=== PATIENT | male | born 1960 | race Caucasian/White ===

== ENCOUNTER 2023-06-08 13:10 | Day surgery (SDC) | payer BC, MEDICARE ==
[2023-06-08] VITALS (8 sets, daily range): BP systolic 96–120; BP diastolic 57–69; PULSE 60–82; RESP 10–18; TEMP 98.4; O2SAT 98–100
[~2023-06-08] VITALS: Ht 185.4 cm; Wt 77.9 kg
[~2023-06-08 13:10] MED LIST: AMI200T PO; APIX5TAB3 PO; DOCUMENT DATE & TIME OF BETA-BLOCKER PO ONE; GLIM4TAB7 PO; HYDR-3972 PO; LISI10TA27 PO; METO50TA17 PO; [UNRECOGNIZED DRUG - REMARK]; albuterol 2.5 MG/3 ML nebule NEB ONE; famotidine 20mg tablet PO ONE
[2023-06-08] MEDS ORDERED: BUPIVAcaine/PF 2.5mg/ml (0.25%) 10ml vial ONE (13:19)
[2023-06-08] MEDS: ringers solution, lacted 1,000 ML IV SCH ×2 (13:46→14:18)
[2023-06-08] MEDS ORDERED: cefazolin 2gm/D5W 100mL 100 ML IV ONE (13:55)
--- NOTE | 2023-06-08 14:00 | NUR ---
PT BLOOD SUGAR NOTED TO BE 300 WITH ACCU CHECK-DR RIVERA AWARE, NO NEW ORDERS GIVEN
[2023-06-08] MEDS ORDERED: sevoflurane 250ml liquid IH ONE (15:12)
[2023-06-08] MEDS ORDERED: meperidine/PF 25mg/ml syringe IV PRN ×3 (15:15)
[2023-06-08] MEDS ORDERED: morphine 2 MG/ML inj. syringe IV PRN (15:15)
[2023-06-08] MEDS ORDERED: proCHLORperazine 10 MG/2 ml inj IV PRN (15:15)
[2023-06-08] MEDS ORDERED: morphine 4 MG/ML inj SYRINge IV PRN (15:15)
[2023-06-08] MEDS ORDERED: ringers solution, lacted 1,000 ML IV SCH (15:15)
[2023-06-08] MEDS ORDERED: ondansetron/PF 4mg/2ml inj IV PRN (15:15)
[2023-06-08] MEDS ORDERED: fentaNYL/PF 50MCG/1 ML 2ML syringe ONE (15:18)
[2023-06-08] MEDS ORDERED: midazolam 1 mg/ML 2ml injection ONE (15:18)
[2023-06-08] MEDS ORDERED: propofol inj 20 ML IV ONE (15:49)
--- NOTE | 2023-06-08 15:56 | NUR ---
Received from OR via MARY, accompanied by Anesthesiologist and report given by MIGUEL Anesthesiologist. PATIENT UNCONSCIOUS WITH LMA, NO S/S OF PAIN, V/S WNL, ERICA PICC LINE, RIGHT FOOT FRANSISCO WRAP DRESSING W/ 4X4 C/D/I. ELEVATE AND ICE RIGHT LOWER EXTREMITY. Addendum: 06/08/23 at 1611 by Vaibhav Morales RN Amended: Links added.
[2023-06-08] MEDS ORDERED: BUPIVAcaine/PF 2.5 mg/ml (0.25%) 30ml vial IJ ONE (16:05)
--- NOTE | 2023-06-08 16:56 | NUR ---
ALL DISCHARGE CRITERIA HAS BEEN MET. VSS, PAIN AT A TOLERABLE LEVEL, ABLE TO SAFELY AMBULATE AND TRANSFER SELF. IV TAKEN OUT WITHOUT ANY COMPLICATIONS. ALL DISCHARGE INSTRUCTIONS COVERED WITH PATIENT AND ALL QUESTIONS ANSWERED. PATIENT TAKEN OUT VIA WHEELCHAIR WITH ALL BELONGINGS TO PERSONAL VEHICLE WHERE FAMILY DROVE PATIENT HOME. Addendum: 06/08/23 at 1711 by Vaibhav Morales RN Amended: Links added.
== END 2023-06-08 16:56 | disposition home or self-care (01) ==
LOC: PAS 13:10
PROVIDERS: ATTEND Orthopaedic Surgery Orthopaedic Trauma
DX: M86.171 Other acute osteomyelitis, right ankle and foot (principal); M87.874 Other osteonecrosis, right foot; E11.22 Type 2 diabetes mellitus with diabetic chronic kidney disease; I13.0 Hypertensive heart and chronic kidney disease with heart failure and stage 1 through stage 4 chronic kidney disease, or unspecified chronic kidney disease; I50.9 Heart failure, unspecified; N18.9 Chronic kidney disease, unspecified; I48.91 Unspecified atrial fibrillation; F40.240 Claustrophobia; M19.90 Unspecified osteoarthritis, unspecified site; I25.10 Atherosclerotic heart disease of native coronary artery without angina pectoris; D64.9 Anemia, unspecified; I25.2 Old myocardial infarction; Z88.0 Allergy status to penicillin; Z72.89 Other problems related to lifestyle; F17.210 Nicotine dependence, cigarettes, uncomplicated; Z98.890 Other specified postprocedural states; Z98.1 Arthrodesis status; Z95.810 Presence of automatic (implantable) cardiac defibrillator
CPT/HCPCS: 28122; 82948; 87070; 87075; 87077; A6222; J0690; J2250; J2704; J3010; J3490; J7030; J7120; Z7506; Z7512; A4618; A6446; A6449; A7000

== ENCOUNTER 2024-12-19 16:05 | Inpatient (IN) | payer MEDICARE, OTHER ==
[~2024-12-19] VITALS: Ht 188 cm; Wt 60.2 kg
[~2024-12-19 16:05] MED LIST changes: +CYAN-104 PO; -DOCUMENT DATE & TIME OF BETA-BLOCKER PO ONE; -HYDR-3972 PO; +MELO-102 PO; +MULT-1085 PO; +UBID100C16 PO; -[UNRECOGNIZED DRUG - REMARK]; -albuterol 2.5 MG/3 ML nebule NEB ONE; -famotidine 20mg tablet PO ONE; +krill oil
[2024-12-19] MEDS ORDERED: DICL-182 PO (16:44)
[2024-12-19] MEDS ORDERED: MIDO10TA3 PO (16:44)
[2024-12-19] MEDS ORDERED: GABA300T28 PO (16:44)
[2024-12-19] MEDS ORDERED: METR-159 PO (16:44)
[2024-12-19] MEDS ORDERED: LIPA1CAP36 (16:44)
[2024-12-19] MEDS ORDERED: INSU100I61 SQ (16:44)
[2024-12-19] MEDS ORDERED: HYDR-3972 PO (16:44)
[2024-12-19] MEDS ORDERED: INSU100I31 SQ (16:44)
[2024-12-19] MEDS ORDERED: EMPA10TA PO (16:44)
[2024-12-19 17:11] LABS: BASOPHILS % (AUTO) 0.5 % (0-1); EOSINOPHILS # (AUTO) 0.1 X10'3 (0-0.9); EOSINOPHILS % (AUTO) 1.7 % (0-6); HEMATOCRIT 27.8 % (42.0-52.0); HEMOGLOBIN 9.7 g/dl (14.0-17.9); LYMPHOCYTES # (AUTO) 1.2 X10'3 (1.1-4.8); LYMPHOCYTES % (AUTO) 21.4 % (21-51); MEAN CORPUSCULAR HGB CONC 34.9 g/dL (33.0-36.5); MEAN CORPUSCULAR VOLUME 88.7 FL (78-98); MONOCYTES # (AUTO) 0.5 X10'3 (0-0.9); MONOCYTES % (AUTO) 8.1 % (2-12); NEUTROPHILS # (AUTO) 3.9 X10'3 (1.8-7.7); NEUTROPHILS % (AUTO) 68.3 % (42-75); PLATELET COUNT 143 X10'3 (140-440); RED BLOOD COUNT 3.13 X10'6 (4.70-6.10); RED CELL DISTRIBUTION WIDTH 17.7 % (11.5-14.5); WHITE BLOOD COUNT 5.7 X10'3 (4.5-11.0)
[2024-12-19] MEDS: CefTRIAXone/D5W-Rocephin 1gm 50 ML IV ONE (17:11)
[2024-12-19 17:13] LABS: LACTIC SEPSIS 0.7 MMOL/L (0.4-2.0)
[2024-12-19 17:20] LABS: ALANINE AMINOTRANSFERASE 222 U/L (12-78); ALBUMIN 2.7 G/DL (3.4-5.0); ANION GAP 8 (8-16); ASPARTATE AMINO TRANSFERASE 416 U/L (10-37); BILIRUBIN,TOTAL 8.2 MG/DL (0.1-1.0); BLOOD UREA NITROGEN 18 MG/DL (7-18); BUN/CREATININE RATIO 22.2 (10.0-20.0); CALCIUM 8.7 MG/DL (8.5-10.1); CHLORIDE 96 MMOL/L (99-107); CREATININE 0.81 MG/DL (0.60-1.10); GLUCOSE 168 MG/DL (70-104); POTASSIUM 3.9 MMOL/L (3.5-5.1); SODIUM 132 MMOL/L (135-145); eCRCL 106 ML/MIN; eGFR > 90 ML/MIN
[2024-12-19] MEDS ORDERED: iohexol 300mg/ml 100ml inj. ONE (17:23)
--- NOTE | 2024-12-19 17:50 | Physician Documentation ---
History of Present Illness ~ General Chief Complaint: Abnormal Lab(s) Stated Complaint: ABNORMAL LABS Time Seen by MD: 16:13 Primary Medical Doctor: Chu Bojorquez MD History of Present Illness Initial Comments 64 year old male sent from Patient's hospital for jaundice, elevated bilirubin and liver enzymes that were noted during that stay. Patient denies abdominal pain, reportedly has a history of alcohol abuse. Has a recent partial amputation of R foot and underwent a debridement. Medication Reconciliation Allergies: Coded Allergies: No Known Drug Allergies (Verified Allergy, Unknown, 10/13/23) Penicillins (Verified Adverse Reaction, Unknown, NAUSEA AND VOMITING, 10/06/23) Scheduled Amiodarone Hcl (Cordarone), 1 TAB PO DAILY, (Reported) Apixaban (Eliquis), 1 TAB PO BID, (Reported) Cyanocobalamin (Vitamin B-12), 1 TAB PO DAILY, (Reported) Empagliflozin (Jardiance), 1 TAB PO DAILY, (Reported) Ferrous Sulfate* (Ferrous Sulfate*), 1 TAB PO DAILY, (Reported) Gabapentin (Gabapentin ER), 300 MG PO BID, (Reported) Glimepiride* (Amaryl*), 1 TAB PO BID, (Reported) Krill/Om-3/Dha/Epa/Phospho/Ast (Krill Oil 1,000 mg Softgel), 2 MG PO DAILY, (Reported) Lisinopril (Lisinopril), 1 TAB PO DAILY, (Reported) Meloxicam (Meloxicam), 1 TAB PO DAILY, (Reported) Metoprolol Tartrate* (Metoprolol Tartrate*), 1 TAB PO Q12H, (Reported) Metronidazole* (Flagyl*), 1 TAB PO Q8H, (Reported) Midodrine Hcl (Midodrine Hcl), 1 TAB PO TID, (Reported) Multivitamin (Multi Vitamin Daily), 1 TAB PO DAILY, (Reported) Multivitamin (Multi Vitamin Daily), 1 TAB PO DAILY, (Reported) Tamsulosin Hcl* (Flomax*), 1 TAB PO Q48H, (Reported) Ubidecarenone (Coq-10), 100 MG PO DAILY, (Reported) Ubidecarenone (Coq-10), 200 MG PO DAILY, (Reported) Scheduled PRN Diclofenac Sodium (Diclofenac Sodium), 1 TAB PO BID PRN for pain, (Reported) Hydrocodone Bit/Acetaminophen (Hydrocodon-Acetaminophn 10-325 tablet), 1 TAB PO Q8H PRN for pain, (Reported) Miscellaneous Medications Insulin Glargine,Hum.rec.anlog (Basaglar Kwikpen U-100), SQ, (Reported) Insulin Lispro (Insulin Lispro Kwikpen U-100), SQ, (Reported) Lipase/Protease/Amylase (Zenpep Dr 25,000 Unit Capsule), (Reported) [krill oil], Unknown Dose, (Reported) Past Medical History Past Medical History: *CARDIOVASCULAR*, Congestive Heart Failure Patient History: FH: myocardial infarction FATHER brother FH: renal cell carcinoma MOTHER sister Alcohol Use: Alcoholic Review of Systems All Other Systems at this time: Reviewed and Negative Physical Exam Physical Exam Vital Signs: RN Vital Signs have been reviewed: Yes, Temperature: 98.8, Source: Oral, Heart Rate: 74, Respiratory Rate: 14, BP: 124/69, Pulse Oximetry: 98, Weight: 150.000 Oxygen Flow Rate: 0 Physical Exam HEENT: PERRL, moist oral mucosa, EOMI +icteric Pulmonary: No respiratory distress Cardiac: RRR, no murmur, rub or gallop GI: nondistended, soft, nontender, no guarding, no rebound MSK: no deformity; R foot in hard boot Skin: w/d/i, +jaundice Neuro: alert, nonfocal Psych: normal affect Progress Results/Orders Results/Orders Orders - AYAZ JOHNSTON MD Ultrasound Of Abdomen (12/19/24 21:24) Page Hospitalist (12/20/24 01:36) Fill Out Med Reconciliation (12/20/24 01:36) Completed Orders - AYAZ JOHNSTON MD Ultrasound Of Abdomen (12/19/24 21:24) Metronidazole-Flagyl 500mg/Ns (Flagyl 50 (12/19/24 22:28) Vancomycin Inj (Vancomycin Inj) (12/19/24 22:35) Vancomycin/Ns 1 Gm Add-[place] (Vancomyc (12/20/24 00:20) Lipase (12/20/24 02:17) CMP (12/20/24 02:26) Hgb A1c (12/20/24 02:26) MG (12/20/24 02:26) PHOS (12/20/24 02:26) Vital Signs 12/19/24 12/19/24 12/19/24 12/19/24 16:22 16:30 16:36 18:30 Temp 98.8 98.8 Pulse 75 74 Resp 12 12 14 B/P (MAP) 124/69 124/69 (87) Pulse Ox 97 98 O2 Flow Rate 0 0 12/19/24 12/19/24 12/19/24 12/20/24 20:16 21:30 22:30 01:30 Temp 98.8 98.8 Pulse 71 71 75 75 Resp 14 16 12 17 B/P (MAP) 136/72 (93) 145/77 (99) 134/75 (94) 119/51 (73) Pulse Ox 99 99 O2 Flow Rate 0 0 0 Laboratory Tests Test 12/19/24 16:25 12/19/24 17:06 12/19/24 18:40 12/19/24 19:39 White Blood Count 5.7 Red Blood Count 3.13 L Hemoglobin 9.7 L Hematocrit 27.8 L Mean Corpuscular Volume 88.7 Mean Corpuscular Hemoglobin 31.0 Mean Corpuscular Hemoglobin Concent 34.9 Red Cell Distribution Width 17.7 H Platelet Count 143 Mean Platelet Volume 8.0 Neutrophils (%) (Auto) 68.3 Lymphocytes (%) (Auto) 21.4 Monocytes (%) (Auto) 8.1 Eosinophils (%) (Auto) 1.7 Basophils (%) (Auto) 0.5 Neutrophils # (Auto) 3.9 Lymphocytes # (Auto) 1.2 Monocytes # (Auto) 0.5 Eosinophils # (Auto) 0.1 Basophils # (Auto) 0.0 CBC Comment Sodium Level 132 L Potassium Level 3.9 Chloride Level 96 L Carbon Dioxide Level 28.0 Anion Gap 8 Blood Urea Nitrogen 18 Creatinine 0.81 Estimated GFR/1.73 m2 > 90 BUN/Creatinine Ratio 22.2 H Glucose Level 168 H Lactic Acid Level 0.7 1.5 Calcium Level 8.7 Total Bilirubin 8.2 H Aspartate Amino Transf (AST/SGOT) 416 H Alanine Aminotransferase (ALT/SGPT) 222 H Alkaline Phosphatase 2640 H Ammonia 75 H Total Protein 6.2 L Albumin 2.7 L Globulin 3.5 Albumin/Globulin Ratio 0.8 L Chemistry Comments Glucometer 181 H Blood Gas Specimen Type Arterial Blood Gas Puncture Site Lb O2 Saturation 94.4 Arterial Blood pH (Temp corrected) 7.447 Arterial Blood pCO2 (Temp correct) 34.6 L Arterial Blood pO2 (Temp corrected) 74.0 L Arterial Blood PO2/FiO2 Ratio 3.50 Arterial Blood HCO3 23.3 Arterial Blood Base Excess -0.3 Arterial Blood Oxyhemoglobin 92.7 L Arterial Blood Carboxyhemoglobin 1.5 Arterial Blood Methemoglobin 0.3 Arterial Blood Deoxyhemoglobin 5.5 H Edwin Test Na Blood Gas Hemoglobin 10.2 L Blood Gas Temperature 37.1 Blood Gas Modality Room air FiO2 21.0 Blood Gas Critical Value Called To Dr roach Test 12/19/24 21:55 12/20/24 02:26 Urine Specimen Description Urinal Urine Color Dark yellow Urine Clarity Clear Urine pH 6.5 Urine Specific [place] 1.015 Urine Protein Negative Urine Glucose (UA) Negative Urine Ketones Negative Urine Occult Blood Negative Urine Nitrite Negative Urine Bilirubin Moderate Urine Urobilinogen 0.2 Urine Leukocyte Esterase Negative Urine Culture Indicated Not ind Volume Urine Centrifuged 10 ml Urine Comment White Blood Count 7.4 Red Blood Count 2.89 L Hemoglobin 9.1 L Hematocrit 26.0 L Mean Corpuscular Volume 89.7 Mean Corpuscular Hemoglobin 31.5 H Mean Corpuscular Hemoglobin Concent 35.1 Red Cell Distribution Width 17.8 H Platelet Count 146 Mean Platelet Volume 8.0 Neutrophils (%) (Auto) 83.8 H Lymphocytes (%) (Auto) 7.4 L Monocytes (%) (Auto) 6.8 Eosinophils (%) (Auto) 1.4 Basophils (%) (Auto) 0.6 Neutrophils # (Auto) 6.2 Lymphocytes # (Auto) 0.5 L Monocytes # (Auto) 0.5 Eosinophils # (Auto) 0.1 Basophils # (Auto) 0.0 CBC Comment Sodium Level 130 L Potassium Level 3.9 Chloride Level 94 L Carbon Dioxide Level 25.1 Anion Gap 11 Blood Urea Nitrogen 18 Creatinine 0.79 Estimated GFR/1.73 m2 > 90 BUN/Creatinine Ratio 22.8 H Glucose Level 178 H Hemoglobin A1c 6.6 H Calcium Level 8.5 Phosphorus Level 3.0 Magnesium Level 1.4 L Total Bilirubin 10.8 H Aspartate Amino Transf (AST/SGOT) 363 H Alanine Aminotransferase (ALT/SGPT) 207 H Alkaline Phosphatase 2635 H Total Protein 5.9 L Albumin 2.6 L Globulin 3.3 Albumin/Globulin Ratio 0.8 L Lipase 6 L Chemistry Comments Microbiology Date/Time Source Procedure Growth Status 12/19/24 18:46 Blood Hand Left Blood Culture - Preliminary NO GROWTH AFTER 1 DAY Resulted Medical Decision Making Findings 64 year old male with recent development of signs of liver or biliary disease, arriving jaundiced. Workup confirmed outside hospital's laboratory studies inc luding markedly elevated bilirubin, elevated tranaminases and other sequalae of liver disease. I elected to start with a CT of the abdomen with plan for likely admission to our facility for further workup. The CT is pending and I will sign out to Dr. Johnston for disposition. Differential Diagnosis Ddx = liver failure, acute biliary obstruction, liver cirrhosis, acute hepatitis, liver tumor, sepsis, hepatic encephalopathy, UTI, pneumonia, wound infection. Departure Admitted to Inpatient Unit: yes, to hospitalist Impression: Primary Impression: Hyperbilirubinemia Additional Impressions: Transaminitis Choledocholithiasis with acute cholecystitis with obstruction Condition: Guarded Referrals: NO PRIMARY CARE PROVIDER (PCP) Education Educated: Patient Educated regarding: diagnosis Signature Scribe Signature: . Attestation: The note accurately reflects work and decisions made by me.Ayaz Johnston MD 12/19/24 23:14 . MERLE PADILLA MD December 19, 2024 17:50 AYAZ JOHNSTON MD December 19, 2024 23:14
[2024-12-19 18:03] LABS: ALBUMIN/GLOBULIN RATIO 0.8 (1.1-1.5); ALKALINE PHOSPHATASE 2640 IU/L (46-116); TOTAL PROTEIN 6.2 G/DL (6.4-8.2)
--- NOTE | 2024-12-19 18:24 | RADIOLOGY REPORT ---
CHEST RADIOGRAPH Indication: hypotensive Technique: Single frontal view of the chest was obtained COMPARISON: DI CHEST,SINGLE VIEW on DOS: 10/13/23, DI CHEST,SINGLE VIEW on DOS: 10/10/23, DI CHEST,SINGLE VIEW on DOS: 10/06/23, DI CHEST,SINGLE VIEW on DOS: 10/06/23, DI CHEST,SINGLE VIEW on DOS: 05/31/23 FINDINGS: Lines and Tubes: Left chest AICD Lungs: Clear Pleura: No effusion. No pneumothorax. Cardiomediastinal contours: Unremarkable Bones: Unremarkable IMPRESSION: No acute disease.
[2024-12-19] MEDS: normal saline 1000ml 1,000 ML IV ONE (18:52)
[2024-12-19] MEDS: normal saline 1000ml 1,000 ML IV STA (18:52)
[2024-12-19 19:46] LABS: ABG BASE EXCESS -0.3 mmol/L (-2.0-3.0); ABG HCO3 23.3 mmol/L (21.0-28.0); ABG OXYGEN SATURATION 94.4 % (94.0-98.0); ABG PCO2 (T) 34.6 mmHg (35.0-48.0); ABG PH (T) 7.447 (7.350-7.450); FCOHb 1.5 % (0.5-1.5); FHHb 5.5 % (0.0-5.0); FMetHb 0.3 % (0.0-1.5); FO2Hb 92.7 % (94.0-98.0); MODE ROOM AIR; PATIENT TEMPERATURE 37.1; TOTAL HEMOGLOBIN 10.2 G/dl (13.5-17.5)
[2024-12-19 22:20] LABS: BILIRUBIN,URINE MODERATE (Neg); CLARITY,URINE CLEAR (Clear); GLUCOSE, URINE NEGATIVE (Neg); KETONES,URINE NEGATIVE (Neg); LEUKOCYTE ESTERASE ,URINE NEGATIVE (Neg); NITRITES, URINE NEGATIVE (Neg); OCCULT BLOOD,URINE NEGATIVE (Neg); PH,URINE 6.5 (4.8-8.0); PROTEIN,URINE NEGATIVE (Neg); UROBILINOGEN,URINE 0.2 E.U/dL (0.2-1.0)
[2024-12-19 22:22] LABS: COLOR,URINE DARK YELLOW (Yellow); UA COLLECTION TYPE URINAL
[2024-12-19] MEDS: vancomycin inj 1,000 MG in normal saline 250ml IV soln 250 ML IV ONE (22:35)
--- NOTE | 2024-12-19 23:02 | RADIOLOGY REPORT ---
Clinical History jaundice, biliary obstructive pattern Comparison ct abdomen pelvis on 10/12/2023, [address] chest on 10/06/2023, 449 images. Technique: Contiguous axial CT images of the chest, abdomen, and pelvis after intravenous contrast ad ministration. Coronal and sagittal reformation was performed. All CT scans at this medical facility are performed using dose modulation techniques as appropriate t o a performed exam including the following: Automated exposure control was utilized; adjustment of th e mA and/or kV according to patient size; and use of iterative reconstruction technique. All CT studies are reported to the Dose Index Registry of the [employer]. Contrast: omni 300 100ml Radiation Dose: CTDI (mGy): 15.05; DLP (mGy-cm): 1556.83 GILLIAN HERNANDEZ, [id number] Findings: Both lungs are clear. No pneumothorax or pleural effusion is present. The trachea and central bronc hi are patent. The heart is not enlarged. The coronary arteries show mild calcified atherosclerosis. No pericardi al effusion or lymphadenopathy is present. The thoracic aorta shows normal course and diameter. The pancreas shows moderate diffuse atrophy and contains numerous calcifications throughout the paren chyma. The pancreatic duct is dilated. An oval 43 x 22 mm loculated fluid collection has developed posterior to the pancreatic head through body. It severely narrows the splenic vein and likely sever genet compresses the common bile duct. The intrahepatic biliary ducts show mild diffuse dilation. The main portal vein is patent. The liver shows mild diffuse fatty infiltration. No suspicious enhancing mass is present. The gallbladder has been removed. The spleen is enlarged at 13.5 cm craniocaudally. Both adrenal glands and both kidneys are normal. No hydronephrosis or ureteral stone is present. The ascending through transverse colon show mild to moderate diffuse wall thickening. The stomach, s mall bowel, and colon show otherwise normal caliber and wall thickness. The appendix is normalis not well seen. Small amount of ascites is in the abdomen and pelvis. No free air, inflammatory changes, or lymphade nopathy is in the abdomen or pelvis. The abdominal aorta shows moderate diffuse atrophy but normal course and diameter. The urinary bladder is decompressed and shows mild diffuse wall thickening. The prostate is enlarged . No acute fracture or bony destructive lesion is in the imaged portion of the skeleton. Impression: 1. A loculated fluid collection posterior to the pancreas may represent a pseudocyst. It likely com presses the distal common bile duct. 2. Ascending through transverse colonic wall thickening concerning for colitis. No perforation or a bscess. 3. Urinary bladder wall thickening may be due to incomplete distention or cystitis. Please correlat e clinically. 4. Chronic pancreatitis. 5. Splenomegaly. 6. Postcholecystectomy. 7. Enlarged prostate. This report was electronically signed by Florentino Miller MD on 12/19/2024 10:58:23 PM.
[2024-12-19] MEDS: metroNIDAZOLE-Flagyl 500mg/NS 100 ML IV STA (23:43)
--- NOTE | 2024-12-20 01:22 | RADIOLOGY REPORT ---
Clinical History suspected biliary obstruction Comparison None Technique: Standard grayscale images were acquired in multiple planes with additional Doppler interro gation when appropriate. Without Contrast DAVIDGILLIAN BAPTISTE, [id number] Findings: Liver: No mass. Intrahepatic biliary ductal dilatation. heterogeneous echotexture of the liver. Gallbladder: No gallstones. Thickened gallbladder wall measuring up to 7 mm. Pericholecystic edema. Common bile duct: distended measuring 7 mm Right kidney: No kidney stone or hydronephrosis. Pancreas: Visualized portion is within normal limits. complex collection anterior to the pancreas 4. 5 x 2.2 cm. Aorta: No aneurysm. IVC: Unremarkable Ascites Impression: 1. Intrahepatic biliary ductal dilatation with a prominent common bile duct measuring 7 mm. No obst ructive stone recommend correlation with HIDA scan to evaluate for ductal obstruction. 2. Gallbladder wall and pericholecystic edema. No gallstones 3. Heterogeneous echotexture of the liver suggesting steatosis 4. Complex collection anterior to the pancreas 4.5 x 2.2 cm, question pseudocyst, bowel loop 5. Mild ascites This report was electronically signed by Manuel Herrera MD on 12/20/2024 1:19:21 AM.
[2024-12-20] MEDS: vancomycin/NS 1 GM ADD-VANTAGE 250 ML IV ONE (02:26)
[2024-12-20] MEDS ORDERED: potassium Cl 40MEQ/1/2NS 520ml 520 ML IV PRN (02:35)
[2024-12-20] MEDS ORDERED: mag hydrox/Alum hydrox/simeth 30ml oral suspension PO PRN (02:35)
[2024-12-20] MEDS ORDERED: morphine 2 MG/ML inj. syringe IV PRN (02:35)
[2024-12-20] MEDS ORDERED: magnesium Cl slow-release 64mg tablet PO PRN (02:35)
[2024-12-20] MEDS ORDERED: acetaminophen 325mg tablet PO PRN (02:35)
[2024-12-20] MEDS ORDERED: potassium Cl 20 mEq SR tablet PO PRN ×2 (02:35)
[2024-12-20 02:43] LABS: LIPASE 6 U/L (16-77)
--- NOTE | 2024-12-20 02:43 | HISTORY AND PHYSICAL-Residence ---
History & Physical Providers to CC Resident Creating Document: IVY RICE RES ~ History of Present Illness Primary Medical Doctor: Chu Bojorquez MD Reason for Admit\Complaint: Hyperbilirubinemia History of Present Illness This 64-year-old male was transferred from patient's hospital due to abnormal liver function tests. He is a poor historian. He has a history of alcohol use disorder, liver cirrhosis, CKD, diabetes mellitus type 2, history of AFib/alcoholic cardiomyopathy-s/p AICD placement, peptic ulcer disease, erosive esophagitis with significant GI bleed requiring pressors in the past. He recently had right 2nd and 3rd toe amputation done. He complains of abdominal pain mainly in the right lower quadrant for the last 2-3 days. Denies any nausea, vomiting, constipation or diarrhea. States that his noticed him turning completely yellow yesterday. Denies any fever or chills, chest pain, shortness of breath, dizziness or syncope or any other complaints. States that his last drink was about six months back. Allergies: Coded Allergies: No Known Drug Allergies (Verified Allergy, Unknown, 10/13/23) Penicillins (Verified Adverse Reaction, Unknown, NAUSEA AND VOMITING, 10/06/23) Home Medications Home Medications Active Reported Midodrine Hcl 10 Mg Tablet 1 Tab PO TID Diclofenac Sodium 75 Mg Tablet. 1 Tab PO BID PRN Flagyl* (Metronidazole) 500 Mg Tablet 1 Tab PO Q8H Zenpep 25,000 Unit Capsule (Lipase/Protease/Amylase) 25-79-105K Capsule.dr Chepe Bautista U-100 (Insulin Glargine,Hum.rec.anlog) 100 Unit/Ml (3 Ml) Insuln.pen SQ Insulin Lispro Lily U-100 (Insulin Lispro) 100 Unit/Ml Insuln.pen SQ Hydrocodon-Acetaminophn 10-325 tablet (Acetaminophen/Hydrocodone Bitart) 10mg- 325mg Tablet 1 Tab PO Q8H PRN Jardiance (Empagliflozin) 10 Mg Tablet 1 Tab PO DAILY Gabapentin ER (Gabapentin) 300 Mg Tab.er.24h [krill oil] Unknown Strength Unknown Dose Vitamin B-12 (Cyanocobalamin) 1,000 Mcg Tablet 1 Tab PO DAILY Coq-10 (Ubidecarenone) 100 Mg Capsule 100 Mg PO DAILY Multi Vitamin Daily (Multivitamin) 1 Each Tablet 1 Tab PO DAILY Meloxicam 15 Mg Tablet 1 Tab PO DAILY Metoprolol Tartrate* (Metoprolol Tartrate) 50 Mg Tablet 1 Tab PO Q12H Eliquis (Apixaban) 5 Mg Tablet 1 Tab PO BID Amaryl* (Glimepiride) 4 Mg Tablet 1 Tab PO BID Cordarone (Amiodarone HCl) 200 Mg Tablet 1 Tab PO DAILY Lisinopril 10 Mg Tablet 1 Tab PO DAILY Past Medical History Past Medical History Alcohol use disorder, liver cirrhosis, CKD, diabetes mellitus type 2, history of AFib/alcoholic cardiomyopathy-s/p AICD placement, peptic ulcer disease, erosive esophagitis with significant GI bleed requiring pressors in the past Past Surgical History Surgical History Comment ICD placement, draining gallbladder, rotator cuff repair, right 2nd and 3rd toes amputation Family History Family History: FH: myocardial infarction FATHER brother FH: renal cell carcinoma MOTHER sister Past Social History Social History Comment States that his last drink was many months back. Denies smoking tobacco or abusing any other recreational drugs Alcohol Use: Alcoholic ROS ROS Constitutional: No fever, chills, dizziness, weakness, weight gain or loss Eyes: No pain, erythema, discharge, blurring of vision ENT: No sore throat, epistaxis, tinnitus Cardiovascular: No chest pain, chest pressure, chest discomfort, palpitations, syncope, lower extremity edema, paroxysmal nocturnal dyspnea Respiratory: No shortness of breath, cough, hemoptysis Gastrointestinal: Abdominal pain present. Normal appetite. No nausea, vomiting, diarrhea, constipation, hematemesis, bloating, melena or fresh blood Genitourinary: No frequency, urgency, nocturia, hematuria or dysuria Musculoskeletal: No arthralgias or myalgias Integumentary: Yellowish discoloration of skin all over the body. No swelling, bruising, abrasions Neurologic: No headache, neck pain, numbness or tingling of the extremities, weakness Psychiatric: No delusions, depression, loss of interest in normal activity or change in sleep pattern, hallucinations, suicidal ideations Endocrine: No fatigue, weakness, polydipsia, polyuria, change in appetite, heat or cold intolerance, sweating, dry skin Hematological: No bleeding, petechiae, bruising Allergies: No asthma or urticaria Exam Vitals: Vital Signs Date Time Temp Pulse Resp B/P (MAP) Pulse Ox O2 Delivery O2 Flow Rate FiO2 12/19/24 20:16 98.8 71 14 136/72 (93) 0 12/19/24 16:30 98 General: Alert and oriented x4. Jaundice present HEENT: Normocephalic and atraumatic. Pupils equal round reactive to light and accommodation. Extraocular movements intact. Oral and nasal mucosa moist. Bilateral scleral icterus present Neck: Trachea is in midline. No masses or JVD Chest: Bilateral normal breath sounds. No crackles, rhonchi or wheezes Cardiovascular: Regular rate and rhythm. S1-S2 normal. No rubs or murmurs Abdomen: Soft and nondistended. Tenderness in the right lower quadrant. Normoactive bowel sounds Extremities: No cyanosis, clubbing or edema Central Nervous System: No gross sensory or motor deficits. CN II to XII intact Musculoskeletal: S/p Right 2nd and 3rd toes amputation Skin: Yellowish discoloration all over the body Diagnostic Data Last Recorded Lab Results: 12/20/2422512/20/24 0226 Advance Care Planning Advanced Care plannin - 30 Minutes Additional Plan Alcoholic liver cirrhosis Jaundice, elevated bilirubin 8.2 Chronic pancreatitis and pancreatic pseudocyst AST 416, ALT 2-2, ALP 2640 Abdomen/pelvis CT showed pancreatic pseudocyst compressing distal CBD and splenic vein, concerning of ascending transverse colitis, possible cystitis, chronic pancreatitis, splenomegaly, post cholecystectomy Abdominal ultrasound showed intrahepatic biliary duct dilation with prominent CBD 7 mm, pericholecystic edema CT and abdominal ultrasound showed different findings about gallbladder. Recommend consulting radiology again in the a.m. Started on Rocephin 2 g IV daily and metronidazole 500 mg IV q.8h Recommend GI and IR consult in the a.m. NPO Morphine for pain Lipase within normal limits Hold home medication Eliquis for possible surgical procedure Hyperammonemia Ammonia 75 Ordered rectal lactulose as patient is NPO Alcoholic cirrhosis Mild hyponatremia Alcoholic cardiomyopathy-s/p AICD History of AFib Echocardiogram on 10/10/2023 showed EF 50-55% Hold home medication Eliquis for possible surgical procedure Continue other home medications after med reconciliation Normocytic normochromic anemia Iron studies ordered Could be due to GI bleed Diabetes mellitus A1c 6.6 Started hyperglycemic/hypoglycemic protocol with Lantus 13 units and low-dose lispro protocol DVT prophylaxis: Start Eliquis after any surgical procedure planned GI prophylaxis Protonix 40 mg IV daily. Also has history of peptic ulcer disease Ivy Rice MD Internal Medicine Resident, PGY 2 Date of Service: December 20, 2024 Billing Provider: ADY ROB MD Common Visit Codes: [id number] INP/OBS CARE (HIGH) Assessment/Plan Assessment Evaluated the patient with the help of residents. Discussed the case with them. Reviewed notes by resident. Agree with her assessments and plans. I also reviewed the patient's records. This included laboratory data radiological investigations and note from other providers. Significant issue in the form of obstructive jaundice and elevated alkaline phosphatase and possible pancreatic lesions. Will need immediate GI evaluation/interventional radiology help. Will await their definitive recommendations. IVY RICE RES December 20, 2024 02:43 ADY ROB MD December 20, 2024 04:19
[2024-12-20 03:13] LABS: BASOPHILS % (AUTO) 0.6 % (0-1); EOSINOPHILS # (AUTO) 0.1 X10'3 (0-0.9); EOSINOPHILS % (AUTO) 1.4 % (0-6); HEMOGLOBIN 9.1 g/dl (14.0-17.9); LYMPHOCYTES # (AUTO) 0.5 X10'3 (1.1-4.8); LYMPHOCYTES % (AUTO) 7.4 % (21-51); MEAN CORPUSCULAR HEMOGLOBIN 31.5 PG (27.0-31.0); MEAN CORPUSCULAR HGB CONC 35.1 g/dL (33.0-36.5); MEAN CORPUSCULAR VOLUME 89.7 FL (78-98); MONOCYTES # (AUTO) 0.5 X10'3 (0-0.9); MONOCYTES % (AUTO) 6.8 % (2-12); NEUTROPHILS # (AUTO) 6.2 X10'3 (1.8-7.7); NEUTROPHILS % (AUTO) 83.8 % (42-75); PLATELET COUNT 146 X10'3 (140-440); RED BLOOD COUNT 2.89 X10'6 (4.70-6.10); RED CELL DISTRIBUTION WIDTH 17.8 % (11.5-14.5); WHITE BLOOD COUNT 7.4 X10'3 (4.5-11.0)
[2024-12-20 03:15] LABS: ALANINE AMINOTRANSFERASE 207 U/L (12-78); ALBUMIN 2.6 G/DL (3.4-5.0); ANION GAP 11 (8-16); ASPARTATE AMINO TRANSFERASE 363 U/L (10-37); BILIRUBIN,TOTAL 10.8 MG/DL (0.1-1.0); BLOOD UREA NITROGEN 18 MG/DL (7-18); BUN/CREATININE RATIO 22.8 (10.0-20.0); CALCIUM 8.5 MG/DL (8.5-10.1); CHLORIDE 94 MMOL/L (99-107); CREATININE 0.79 MG/DL (0.60-1.10); GLUCOSE 178 MG/DL (70-104); MAGNESIUM 1.4 MG/DL (1.5-2.4); SODIUM 130 MMOL/L (135-145); TOTAL CARBON DIOXIDE 25.1 MMOL/L (24-32); eCRCL 108 ML/MIN; eGFR > 90 ML/MIN
[2024-12-20 03:19] LABS: ALBUMIN/GLOBULIN RATIO 0.8 (1.1-1.5); POTASSIUM 3.9 MMOL/L (3.5-5.1); TOTAL PROTEIN 5.9 G/DL (6.4-8.2)
[2024-12-20 03:32] LABS: HEMOGLOBIN A1C 6.6 % (4.5-6.2)
[2024-12-20 03:42] LABS: ALKALINE PHOSPHATASE 2635 IU/L (46-116)
[2024-12-20] MEDS: morphine 2 MG/ML inj. syringe IV PRN (04:26)
[2024-12-20 04:45] VITALS: BP 133/68; PULSE 76; RESP 16; TEMP 98.3; O2SAT 98
[2024-12-20] MEDS ORDERED: TAMS-55 PO (06:06)
[2024-12-20] MEDS ORDERED: DEXTROSE 15 GM of carb/4 tabs (each vial/BOTTLE has 4 tablets) PO PRN (06:30)
[2024-12-20] MEDS ORDERED: glucagon, human recombinant 1mg kit SUBCUT PRN (06:30)
[2024-12-20] MEDS: K and/or MAG REPLACEMENT MC SCH (08:00)
[2024-12-20] MEDS: docusate sod 100mg capsule PO SCH (08:00)
[2024-12-20] MEDS: pantoprazole 40 MG vial IV SCH (09:08)
[2024-12-20] MEDS: magnesium sulf-water 4G/100mL 100 ML IV PRN (09:10)
[2024-12-20] MEDS: metroNIDAZOLE-Flagyl 500mg/NS 100 ML IV SCH (09:10)
[2024-12-20] MEDS: Lactulose Enema **for rectal use only RC ONE (09:10)
[2024-12-20 10:00] VITALS: BP 135/72; PULSE 69; RESP 17; TEMP 98.1; O2SAT 98
[2024-12-20] MEDS: HYDROmorphone/PF 0.2 MG/ML SYRINGE IV PRN (10:14)
[2024-12-20] MEDS: INSULIN LISPRO 100 UNIT/ML INSULN.PEN MULTI-DOSE SQ SCH (10:17)
[2024-12-20] MEDS ORDERED: FERR325T28 PO (10:52)
[2024-12-20] MEDS ORDERED: KRIL1CAP18 PO (11:13)
[2024-12-20 11:28] LABS: % IRON SATURATION 21 % (11-46); IRON 34 UG/DL (53-167); TOTAL IRON BINDING CAPACITY 161 UG/DL (259-388)
[2024-12-20 13:12] VITALS: RESP 16; O2SAT 96
[2024-12-20] MEDS: CefTRIAXone 2gm/D5W 50ml BAG 50 ML IV SCH (17:24)
[2024-12-20] MEDS: HYDROmorphone 1 mg/ml syringe IV PRN (17:24)
[2024-12-20] MEDS: magnesium sulf-water 2g/50mL 50 ML IV PRN (17:31)
[2024-12-20 18:00] VITALS: BP 102/44; PULSE 64; RESP 20; TEMP 97.8; O2SAT 98
[2024-12-20 20:00] VITALS: RESP 20; O2SAT 98
[2024-12-20] MEDS: ketorolac trometh 15mg/ml vial 15 MG/ML ML IV ONE (21:26)
[2024-12-20] MEDS: ringers solution, lacted 1,000 ML IV SCH (21:42)
[2024-12-20] MEDS: insulin glargine (Lantus) pen - multi-dose SQ SCH (21:43)
[2024-12-20 22:00] VITALS: BP 120/66; PULSE 63; RESP 16; TEMP 97.1; O2SAT 99
[2024-12-21 04:44] LABS: BASOPHILS % (AUTO) 0.5 % (0-1); EOSINOPHILS # (AUTO) 0.1 X10'3 (0-0.9); EOSINOPHILS % (AUTO) 2.6 % (0-6); HEMATOCRIT 25.1 % (42.0-52.0); HEMOGLOBIN 8.8 g/dl (14.0-17.9); LYMPHOCYTES % (AUTO) 19.9 % (21-51); MEAN CORPUSCULAR HEMOGLOBIN 31.5 PG (27.0-31.0); MEAN CORPUSCULAR HGB CONC 35.1 g/dL (33.0-36.5); MEAN CORPUSCULAR VOLUME 89.6 FL (78-98); MEAN PLATELET VOLUME 7.6 FL (7.4-10.4); MONOCYTES # (AUTO) 0.4 X10'3 (0-0.9); MONOCYTES % (AUTO) 7.3 % (2-12); NEUTROPHILS # (AUTO) 3.5 X10'3 (1.8-7.7); NEUTROPHILS % (AUTO) 69.7 % (42-75); PLATELET COUNT 146 X10'3 (140-440); RED CELL DISTRIBUTION WIDTH 18.8 % (11.5-14.5)
[2024-12-21 04:55] LABS: APTT 31 SECONDS (22-32); INR 1.3 INR
[2024-12-21 05:11] LABS: ALANINE AMINOTRANSFERASE 200 U/L (12-78); ALBUMIN 2.4 G/DL (3.4-5.0); ANION GAP 8 (8-16); ASPARTATE AMINO TRANSFERASE 368 U/L (10-37); BILIRUBIN,TOTAL 13.2 MG/DL (0.1-1.0); BLOOD UREA NITROGEN 17 MG/DL (7-18); BUN/CREATININE RATIO 19.1 (10.0-20.0); CALCIUM 8.4 MG/DL (8.5-10.1); CHLORIDE 93 MMOL/L (99-107); CREATININE 0.89 MG/DL (0.60-1.10); GLUCOSE 134 MG/DL (70-104); HDL CHOLESTEROL 13 MG/DL (35-60); LDL CHOLESTEROL 130 MG/DL (50-100); MAGNESIUM 2.2 MG/DL (1.5-2.4); POTASSIUM 3.6 MMOL/L (3.5-5.1); SODIUM 129 MMOL/L (135-145); TOTAL CARBON DIOXIDE 28.2 MMOL/L (24-32); eCRCL 96 ML/MIN; eGFR 86 ML/MIN
[2024-12-21 05:31] LABS: ALBUMIN/GLOBULIN RATIO 0.8 (1.1-1.5); ALKALINE PHOSPHATASE 2787 IU/L (46-116); CHOL/HDL RATIO 12.5 (0.00-4.99); CHOLESTEROL 162 MG/DL (0-200); TOTAL PROTEIN 5.6 G/DL (6.4-8.2); TRIGLYCERIDES 45 MG/DL (20-135)
[2024-12-21 06:00] VITALS: BP 117/63; PULSE 60; RESP 13; TEMP 97.6; O2SAT 100
[2024-12-21 08:00] VITALS: RESP 16; O2SAT 97
[2024-12-21] MEDS ORDERED: naloxone 0.4 mg/ml inj IV PRN (08:55)
[2024-12-21] MEDS ORDERED: PCA WASTE DOCUMENTATION 1 MG ML MC PRN (08:55)
[2024-12-21] MEDS: HYDROmorphone 1 mg/ml syringe IV ONE (09:13)
[2024-12-21 10:00] VITALS: BP 124/65; PULSE 61; RESP 16; TEMP 98.4; O2SAT 97
[2024-12-21] MEDS: HYDROmorph/NS 0.2 mg/ml PCA 100 ML IV SCH (11:00)
[2024-12-21] MEDS: normal saline 1000ml 1,000 ML IV SCH (11:16)
--- NOTE | 2024-12-21 11:37 | DISCHARGE SUMMARY ---
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 Moctezuma Complications: None Condition on DC: Stable for transfer Discharge Summary: This is a 64 years old male with history of liver cirrhosis and chronic pancreatitis who presents to the hospital because of presence of jaundice; patient has been having increased abdominal pain also, which aggravated the past two three days prior to admission; he denied any fever or chills; he had some nausea; upon admission a CT of the abdomen and pelvis was done which showed a loculated fluid collection posterior to the pancreas likely representing a pseudocyst that likely compresses the distal common bile duct; chronic pancreatitis splenomegaly status post cholecystectomy; patient has been treated with pain medication requiring Dilaudid; case was discussed with GI at our facility who recommended transfer for endoscopic ultrasound and drainage; patient condition remained stable throughout his stay Blood work today December 21 white count 5 H and H 8.8/25 with 146 platelets; sodium 129 potassium 2.6 CO2 28 BUN 79 creatinine 0.9; total bilirubin 13.2 AST 368 AST 200 alk-phos 2787 In the physical examination temperature 98.4 and 60 breathing 16 blood pressure 124/65 97% on room air he is in bed in nonacute distress cachectic looking icteric take Namenda and mucosa HEENT normal oral mucosa no JVD lungs with normal bilateral entry no crackles no wheezing heart normal rate and rhythm S1- S2 no murmurs abdomen is soft mild generalized tenderness no rebound or guarding bowel sounds are present extremities no edema plus two pulses he is awake and alert motor and sensory intact *Problems/Diagnosis: (1) Elevated liver enzymes Status: Acute Total Time Spent on D/C: > 30 Minutes Date of Service: December 21, 2024 Billing Provider: LEORA RONDON MD Common Visit Codes: [id number] DISCH DAY >30min LEORA RONDON MD December 21, 2024 11:36
[2024-12-21] MEDS ORDERED: HYDROmorph/NS 0.2 mg/ml PCA 100 ML IV SCH (15:00)
[2024-12-21] MEDS: PCA WASTE DOCUMENTATION 1 MG ML MC PRN (16:05)
[2024-12-21] MEDS: HYDROmorphone 1 mg/ml syringe IV PRN (16:14)
[2024-12-21 18:00] VITALS: BP 110/51; PULSE 88; RESP 18; TEMP 98.2; O2SAT 98
[2024-12-21 20:00] VITALS: RESP 18; O2SAT 98
[2024-12-21 22:00] VITALS: BP 123/69; PULSE 60; RESP 16; TEMP 98.8; O2SAT 97
[2024-12-22] MEDS: ondansetron/PF 4mg/2ml inj IV PRN (01:20)
[2024-12-22 05:54] LABS: BASOPHILS % (AUTO) 0.5 % (0-1); EOSINOPHILS # (AUTO) 0.3 X10'3 (0-0.9); EOSINOPHILS % (AUTO) 4.3 % (0-6); HEMATOCRIT 24.2 % (42.0-52.0); HEMOGLOBIN 8.6 g/dl (14.0-17.9); LYMPHOCYTES # (AUTO) 0.6 X10'3 (1.1-4.8); LYMPHOCYTES % (AUTO) 9.3 % (21-51); MEAN CORPUSCULAR HEMOGLOBIN 31.5 PG (27.0-31.0); MEAN CORPUSCULAR HGB CONC 35.5 g/dL (33.0-36.5); MEAN CORPUSCULAR VOLUME 88.7 FL (78-98); MEAN PLATELET VOLUME 8.2 FL (7.4-10.4); MONOCYTES # (AUTO) 0.6 X10'3 (0-0.9); NEUTROPHILS # (AUTO) 4.8 X10'3 (1.8-7.7); NEUTROPHILS % (AUTO) 76.9 % (42-75); PLATELET COUNT 157 X10'3 (140-440); RED BLOOD COUNT 2.72 X10'6 (4.70-6.10); RED CELL DISTRIBUTION WIDTH 18.8 % (11.5-14.5); WHITE BLOOD COUNT 6.3 X10'3 (4.5-11.0)
[2024-12-22 06:00] VITALS: BP 118/68; PULSE 59; RESP 20; TEMP 97.6; O2SAT 99
[2024-12-22 06:06] LABS: APTT 32 SECONDS (22-32); INR 1.4 INR; PROTHROMBIN TIME 13.7 SECONDS (9.0-12.0)
[2024-12-22 06:34] LABS: ALANINE AMINOTRANSFERASE 172 U/L (12-78); ALBUMIN 2.2 G/DL (3.4-5.0); ANION GAP 6 (8-16); ASPARTATE AMINO TRANSFERASE 256 U/L (10-37); BILIRUBIN,TOTAL 13.1 MG/DL (0.1-1.0); BLOOD UREA NITROGEN 10 MG/DL (7-18); BUN/CREATININE RATIO 13.9 (10.0-20.0); CALCIUM 8.1 MG/DL (8.5-10.1); CHLORIDE 96 MMOL/L (99-107); CREATININE 0.72 MG/DL (0.60-1.10); GLUCOSE 51 MG/DL (70-104); MAGNESIUM 1.7 MG/DL (1.5-2.4); POTASSIUM 3.5 MMOL/L (3.5-5.1); SODIUM 131 MMOL/L (135-145); TOTAL CARBON DIOXIDE 28.6 MMOL/L (24-32); eCRCL 119 ML/MIN; eGFR > 90 ML/MIN
[2024-12-22 06:51] LABS: ALBUMIN/GLOBULIN RATIO 0.7 (1.1-1.5); PHOSPHORUS 3.5 MG/DL (2.3-4.5); TOTAL PROTEIN 5.4 G/DL (6.4-8.2)
[2024-12-22 07:15] LABS: ALKALINE PHOSPHATASE 2374 IU/L (46-116)
[2024-12-22 07:28] LABS: ANISOCYTOSIS 2+; PLATELET ESTIMATE NORMAL; STOMATOCYTES 1+; TARGET CELLS FEW
[2024-12-22 09:10] VITALS: RESP 18; O2SAT 99
[2024-12-22 10:00] VITALS: BP 135/71; PULSE 61; RESP 17; TEMP 98; O2SAT 100
[2024-12-22] MEDS ORDERED: potassium Cl 20 mEq SR tablet PO PRN ×2 (15:55)
[2024-12-22] MEDS ORDERED: potassium Cl 40MEQ/1/2NS 520ml 520 ML IV PRN (15:55)
[2024-12-22 18:00] VITALS: BP 119/62; PULSE 61; RESP 20; TEMP 98.5; O2SAT 97
--- NOTE | 2024-12-22 18:53 | PROGRESS NOTE ---
Daily Progress Note Providers to CC ~ Antibiotic Timeout Antibiotic Ordered?: Yes Subjective Pain under better control; feels hungry and wants to advance his diet Objective Vital Signs Date Time Temp Pulse Resp B/P (MAP) Pulse Ox O2 Delivery O2 Flow Rate FiO2 12/22/24 17:11 18 12/22/24 10:00 98.0 61 135/71 (92) 100 Room Air 12/22/24 09:10 0.0 Result Diagram: 12/22/24 0507 12/22/24 0507 In bed in nonacute distress HEENT normal oral mucosa no JVD icteric sclera Lungs with decreased bilateral entry no crackles no wheezing Heart normal rate and rhythm S1-S2 Abdomen is soft mild generalized tenderness bowel sounds are present Extremities no edema Awake and alert motor and sensory intact Coagulation Studies Laboratory Tests Test 12/22/24 05:07 Prothrombin Time 13.7 SECONDS (9.0-12.0) H INR International Normalized Ratio 1.4 INR Activated Partial Thromboplast Time 32 SECONDS (22-32) Coagulation Comments Problem\Assessment\Plan Problems/Diagnosis: (1) Elevated liver enzymes Patient presented with jaundice; has a pseudocyst compressing biliary ducts; discussed with GI; patient needs transferred to [facility] Pain management with IV Dilaudid History of chronic pancreatitis History of cirrhosis Diabetes likely secondary to pancreatic insufficiency on Lantus Anemia we will monitor Date of Service: December 22, 2024 Billing Provider: LEORA RONDON MD Common Visit Codes: [id number] INP/OBS CARE(HIGH) LEORA RONDON MD December 22, 2024 18:53
[2024-12-22 20:00] VITALS: RESP 20; O2SAT 97
[2024-12-22] MEDS: K and/or MAG REPLACEMENT MC SCH (20:00)
[2024-12-22 22:00] VITALS: BP 127/73; PULSE 68; RESP 18; TEMP 98.1; O2SAT 97
[2024-12-23 06:00] VITALS: BP 129/70; PULSE 63; RESP 16; TEMP 99.7; O2SAT 99
[2024-12-23 06:03] LABS: HEMATOCRIT 25.3 % (42.0-52.0); MEAN CORPUSCULAR HEMOGLOBIN 31.3 PG (27.0-31.0); MEAN CORPUSCULAR HGB CONC 35.4 g/dL (33.0-36.5); MEAN CORPUSCULAR VOLUME 88.3 FL (78-98); MEAN PLATELET VOLUME 7.8 FL (7.4-10.4); PLATELET COUNT 159 X10'3 (140-440); RED BLOOD COUNT 2.87 X10'6 (4.70-6.10); RED CELL DISTRIBUTION WIDTH 18.8 % (11.5-14.5)
[2024-12-23 06:14] LABS: INR 1.4 INR
[2024-12-23 06:31] LABS: ALANINE AMINOTRANSFERASE 164 U/L (12-78); ALBUMIN 2.3 G/DL (3.4-5.0); ANION GAP 6 (8-16); ASPARTATE AMINO TRANSFERASE 247 U/L (10-37); BILIRUBIN,TOTAL 14.2 MG/DL (0.1-1.0); BLOOD UREA NITROGEN 7 MG/DL (7-18); BUN/CREATININE RATIO 9.7 (10.0-20.0); CALCIUM 8.2 MG/DL (8.5-10.1); CHLORIDE 92 MMOL/L (99-107); CREATININE 0.72 MG/DL (0.60-1.10); GLUCOSE 112 MG/DL (70-104); MAGNESIUM 1.4 MG/DL (1.5-2.4); POTASSIUM 4.1 MMOL/L (3.5-5.1); SODIUM 128 MMOL/L (135-145); TOTAL CARBON DIOXIDE 29.8 MMOL/L (24-32); eCRCL 119 ML/MIN; eGFR > 90 ML/MIN
[2024-12-23 06:32] LABS: ALBUMIN/GLOBULIN RATIO 0.7 (1.1-1.5); ALKALINE PHOSPHATASE 2410 IU/L (46-116); PHOSPHORUS 3.6 MG/DL (2.3-4.5); TOTAL PROTEIN 5.6 G/DL (6.4-8.2)
[2024-12-23 08:15] VITALS: RESP 18; O2SAT 97
[2024-12-23 08:32] LABS: ANISOCYTOSIS 2+; PLATELET ESTIMATE NORMAL; STOMATOCYTES 1+; TOTAL CELLS COUNTED 100
[2024-12-23] MEDS: magnesium Cl slow-release 64mg tablet PO PRN (09:00)
[2024-12-23 10:00] VITALS: BP 115/61; PULSE 61; RESP 16; TEMP 98.3; O2SAT 100
[2024-12-23] MEDS: lactulose 20gm/30ml cup PO SCH (10:34)
[2024-12-23] MEDS: bisacodyl 10mg suppository rectal RC STA (10:34)
[2024-12-23] MEDS: magnesium hydroxide 30ml (MOM) UD suspension PO PRN (10:34)
[2024-12-23] MEDS: tamsulosin 0.4mg capsule PO SCH (10:35)
--- NOTE | 2024-12-23 17:38 | PROGRESS NOTE ---
Daily Progress Note Providers to CC ~ Antibiotic Timeout Antibiotic Ordered?: No Subjective Tolerating nutrition well pain seems to be under reasonable control Objective Vital Signs Date Time Temp Pulse Resp B/P (MAP) Pulse Ox O2 Delivery O2 Flow Rate FiO2 12/23/24 16:38 16 12/23/24 10:00 98.3 61 115/61 (79) 100 Room Air 12/22/24 20:00 0.0 Result Diagram: 12/23/24 0508 12/23/24 0508 In bed in nonacute distress HEENT normal oral mucosa no JVD icteric sclera Lungs with decreased bilateral entry no crackles no wheezing Heart normal rate and rhythm S1-S2 Abdomen is soft mild generalized tenderness bowel sounds are present Extremities no edema Awake and alert motor and sensory intact Icteric tegument Coagulation Studies Laboratory Tests Test 12/22/24 05:07 12/23/24 05:08 Activated Partial Thromboplast Time 32 SECONDS (22-32) Prothrombin Time 14.0 SECONDS (9.0-12.0) H INR International Normalized Ratio 1.4 INR Coagulation Comments Problem\Assessment\Plan Problems/Diagnosis: (1) Elevated liver enzymes Patient presented with jaundice; has a pseudocyst compressing biliary ducts; discussed with GI; patient needs transferred to [facility] 12/23 awaiting to hear from [facility] Pain management with IV Dilaudid History of chronic pancreatitis History of cirrhosis Diabetes 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
[2024-12-23 18:00] VITALS: BP 94/57; PULSE 77; RESP 14; TEMP 97.9; O2SAT 98
[2024-12-23 20:00] VITALS: RESP 16; O2SAT 98
[2024-12-23 22:00] VITALS: BP 142/74; PULSE 71; RESP 16; TEMP 98.7; O2SAT 93
[2024-12-24] MEDS: HYDROcodone/acetaminophen 5mg/325mg tablet PO PRN (02:25)
[2024-12-24] MEDS: HYDROmorphone 1 mg/ml syringe IV PRN (05:05)
[2024-12-24 06:00] VITALS: BP 99/52; PULSE 57; RESP 16; TEMP 98.1; O2SAT 99
[2024-12-24 06:58] LABS: MEAN PLATELET VOLUME 8.5 FL (7.4-10.4)
[2024-12-24 07:00] LABS: HEMOGLOBIN 7.5 g/dl (14.0-17.9); MEAN CORPUSCULAR HEMOGLOBIN 31.3 PG (27.0-31.0); MEAN CORPUSCULAR HGB CONC 35.5 g/dL (33.0-36.5); MEAN CORPUSCULAR VOLUME 88.2 FL (78-98); PLATELET COUNT 145 X10'3 (140-440); RED BLOOD COUNT 2.39 X10'6 (4.70-6.10); RED CELL DISTRIBUTION WIDTH 19.8 % (11.5-14.5); WHITE BLOOD COUNT 5.2 X10'3 (4.5-11.0)
[2024-12-24 07:04] LABS: HEMATOCRIT 21.1 % (42.0-52.0)
[2024-12-24 07:10] LABS: INR 1.5 INR
[2024-12-24 07:27] LABS: TOTAL CELLS COUNTED 100
[2024-12-24 07:29] LABS: PLATELET ESTIMATE NORMAL
[2024-12-24 07:30] LABS: ANISOCYTOSIS 2+; HYPOCHROMASIA 1+; STOMATOCYTES 1+
[2024-12-24 07:34] LABS: ALANINE AMINOTRANSFERASE 128 U/L (12-78); ALBUMIN 2.3 G/DL (3.4-5.0); ANION GAP 6 (8-16); BILIRUBIN,TOTAL 9.7 MG/DL (0.1-1.0); BLOOD UREA NITROGEN 8 MG/DL (7-18); BUN/CREATININE RATIO 11.3 (10.0-20.0); CHLORIDE 94 MMOL/L (99-107); CREATININE 0.71 MG/DL (0.60-1.10); GLUCOSE 72 MG/DL (70-104); MAGNESIUM 1.6 MG/DL (1.5-2.4); SODIUM 129 MMOL/L (135-145); TOTAL CARBON DIOXIDE 28.6 MMOL/L (24-32); eCRCL 121 ML/MIN; eGFR > 90 ML/MIN
[2024-12-24 07:46] LABS: ALBUMIN/GLOBULIN RATIO 0.7 (1.1-1.5); ALKALINE PHOSPHATASE 2062 IU/L (46-116); ASPARTATE AMINO TRANSFERASE 159 U/L (10-37); PHOSPHORUS 3.9 MG/DL (2.3-4.5); POTASSIUM 4.4 MMOL/L (3.5-5.1); TOTAL PROTEIN 5.4 G/DL (6.4-8.2)
[2024-12-24 07:52] LABS: PROTHROMBIN TIME 14.1 SECONDS (9.0-12.0)
[2024-12-24 11:00] VITALS: BP 92/54; PULSE 60; RESP 18; TEMP 98.2; O2SAT 99
--- NOTE | 2024-12-24 17:14 | PROGRESS NOTE ---
Daily Progress Note Providers to CC ~ Antibiotic Timeout Antibiotic Ordered?: Yes Subjective Pain unchanged Objective Vital Signs Date Time Temp Pulse Resp B/P (MAP) Pulse Ox O2 Delivery O2 Flow Rate FiO2 12/24/24 11:00 98.2 60 18 92/54 (67) 99 Room Air 12/24/24 08:00 0.0 Result Diagram: 12/24/24 0630 12/24/24 0630 In bed in nonacute distress HEENT normal oral mucosa no JVD icteric sclera Lungs with decreased bilateral entry no crackles no wheezing Heart normal rate and rhythm S1-S2 Abdomen is soft mild generalized tenderness bowel sounds are present Extremities no edema Awake and alert motor and sensory intact Icteric tegument Coagulation Studies Laboratory Tests Test 12/22/24 05:07 12/24/24 06:30 Activated Partial Thromboplast Time 32 SECONDS (22-32) Prothrombin Time 14.1 SECONDS (9.0-12.0) H INR International Normalized Ratio 1.5 INR Coagulation Comments Problem\Assessment\Plan Problems/Diagnosis: (1) Elevated liver enzymes Patient presented with jaundice; has a pseudocyst compressing biliary ducts; discussed with GI; patient needs transferred to [facility] 12/23 [place] [facility] [place] management with IV Dilaudid History of chronic pancreatitis History of cirrhosis 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
[2024-12-24 18:30] VITALS: BP 119/59; PULSE 67; RESP 15; TEMP 98.1; O2SAT 98
[2024-12-24 20:00] VITALS: RESP 15; O2SAT 98
[2024-12-24] MEDS: HYDROcodone/acetaminophen 10/325mg tab PO PRN (20:58)
[2024-12-24 22:00] VITALS: BP 143/71; PULSE 64; RESP 14; TEMP 97.5; O2SAT 100
[2024-12-25] MEDS: metroNIDAZOLE 500mg tablet PO SCH (00:08)
[2024-12-25] MEDS: DEXTROSE 15 GM of carb/4 tabs (each vial/BOTTLE has 4 tablets) PO PRN (04:50)
[2024-12-25 06:00] VITALS: BP 115/69; PULSE 76; RESP 16; TEMP 98; O2SAT 100
[2024-12-25] MEDS: pantoprazole 40mg Tablet.DR PO SCH (07:57)
[2024-12-25 09:23] LABS: BASOPHILS % (AUTO) 0.4 % (0-1); EOSINOPHILS # (AUTO) 0.2 X10'3 (0-0.9); EOSINOPHILS % (AUTO) 3.4 % (0-6); HEMATOCRIT 22.6 % (42.0-52.0); HEMOGLOBIN 7.7 g/dl (14.0-17.9); LYMPHOCYTES # (AUTO) 0.8 X10'3 (1.1-4.8); LYMPHOCYTES % (AUTO) 14.8 % (21-51); MEAN CORPUSCULAR HEMOGLOBIN 30.7 PG (27.0-31.0); MEAN CORPUSCULAR HGB CONC 34.3 g/dL (33.0-36.5); MEAN CORPUSCULAR VOLUME 89.6 FL (78-98); MEAN PLATELET VOLUME 7.6 FL (7.4-10.4); MONOCYTES # (AUTO) 0.4 X10'3 (0-0.9); MONOCYTES % (AUTO) 7.1 % (2-12); NEUTROPHILS # (AUTO) 3.9 X10'3 (1.8-7.7); NEUTROPHILS % (AUTO) 74.3 % (42-75); PLATELET COUNT 152 X10'3 (140-440); RED BLOOD COUNT 2.52 X10'6 (4.70-6.10); RED CELL DISTRIBUTION WIDTH 20.5 % (11.5-14.5); WHITE BLOOD COUNT 5.2 X10'3 (4.5-11.0)
[2024-12-25 09:48] LABS: ALANINE AMINOTRANSFERASE 114 U/L (12-78); ALBUMIN 2.5 G/DL (3.4-5.0); ANION GAP 7 (8-16); ASPARTATE AMINO TRANSFERASE 99 U/L (10-37); BILIRUBIN,TOTAL 5.3 MG/DL (0.1-1.0); BLOOD UREA NITROGEN 8 MG/DL (7-18); BUN/CREATININE RATIO 7.8 (10.0-20.0); CALCIUM 8.2 MG/DL (8.5-10.1); CHLORIDE 91 MMOL/L (99-107); CREATININE 1.02 MG/DL (0.60-1.10); GLUCOSE 284 MG/DL (70-104); POTASSIUM 3.7 MMOL/L (3.5-5.1); SODIUM 127 MMOL/L (135-145); TOTAL CARBON DIOXIDE 28.8 MMOL/L (24-32); eCRCL 84 ML/MIN; eGFR 73 ML/MIN
[2024-12-25 09:54] LABS: ALBUMIN/GLOBULIN RATIO 0.8 (1.1-1.5); ALKALINE PHOSPHATASE 2018 IU/L (46-116); TOTAL PROTEIN 5.7 G/DL (6.4-8.2)
[2024-12-25] MEDS: LIDOcaine 5% patch TP SCH (10:35)
[2024-12-25] MEDS: normal saline 1000ml 1,000 ML IV SCH (10:35)
[2024-12-25] MEDS: oxyCODONE/APAP 10/325mg tablet PO ONE (10:35)
[2024-12-25 10:49] LABS: ANISOCYTOSIS 3+; PLATELET ESTIMATE NORMAL
[2024-12-25 10:50] LABS: HYPOCHROMASIA 1+; TARGET CELLS FEW
[2024-12-25 11:00] VITALS: BP 113/62; PULSE 59; RESP 19; TEMP 98.4; O2SAT 99
[2024-12-25] MEDS: lactose-reduced food (Ensure Enlive) - 237ml bottle PO SCH (13:00)
[2024-12-25] MEDS: oxyCODONE/APAP 10/325mg tablet PO PRN (14:24)
--- NOTE | 2024-12-25 16:16 | PROGRESS NOTE ---
Daily Progress Note Providers to CC ~ Antibiotic Timeout Antibiotic Ordered?: No Subjective Pain management not working well needs adjustments Objective Vital Signs Date Time Temp Pulse Resp B/P (MAP) Pulse Ox O2 Delivery O2 Flow Rate FiO2 12/25/24 14:24 16 12/25/24 11:00 98.4 59 113/62 (79) 99 Room Air 12/25/24 08:30 0.0 Result Diagram: 12/25/24 0850 12/25/24 0850 In bed in nonacute distress HEENT normal oral mucosa no JVD icteric sclera Lungs with decreased bilateral entry no crackles no wheezing Heart normal rate and rhythm S1-S2 Abdomen is soft mild generalized tenderness bowel sounds are present Extremities no edema Awake and alert motor and sensory intact Icteric tegument Coagulation Studies Laboratory Tests Test 12/22/24 05:07 12/24/24 06:30 Activated Partial Thromboplast Time 32 SECONDS (22-32) Prothrombin Time 14.1 SECONDS (9.0-12.0) H INR International Normalized Ratio 1.5 INR Coagulation Comments Problem\Assessment\Plan Problems/Diagnosis: (1) Elevated liver enzymes Patient presented with jaundice; has a pseudocyst compressing biliary ducts; discussed with GI; patient needs transferred to [facility] 12/23 [place] [facility] [place] management with IV Dilaudid 12/25 switch [place] for Percocets History of chronic pancreatitis History of cirrhosis 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
[2024-12-25 18:30] VITALS: BP 115/51; PULSE 57; RESP 17; TEMP 97.9; O2SAT 100
[2024-12-25 19:20] VITALS: RESP 17; O2SAT 100
[2024-12-25 22:00] VITALS: BP 92/51; PULSE 57; RESP 14; TEMP 97.9; O2SAT 97
[2024-12-26 06:00] VITALS: BP 101/46; PULSE 73; RESP 12; TEMP 97.8; O2SAT 100
[2024-12-26 08:00] VITALS: RESP 16; O2SAT 97
[2024-12-26 10:00] VITALS: BP 106/61; PULSE 53; RESP 21; TEMP 98; O2SAT 99
[2024-12-26 11:03] LABS: ALANINE AMINOTRANSFERASE 103 U/L (12-78); ALBUMIN 2.6 G/DL (3.4-5.0); ANION GAP 5 (8-16); ASPARTATE AMINO TRANSFERASE 103 U/L (10-37); BILIRUBIN,TOTAL 4.5 MG/DL (0.1-1.0); BLOOD UREA NITROGEN 9 MG/DL (7-18); BUN/CREATININE RATIO 9.4 (10.0-20.0); CALCIUM 8.3 MG/DL (8.5-10.1); CHLORIDE 95 MMOL/L (99-107); CREATININE 0.96 MG/DL (0.60-1.10); GLUCOSE 91 MG/DL (70-104); POTASSIUM 4.4 MMOL/L (3.5-5.1); SODIUM 129 MMOL/L (135-145); eCRCL 89 ML/MIN; eGFR 79 ML/MIN
[2024-12-26 11:07] LABS: ALBUMIN/GLOBULIN RATIO 0.8 (1.1-1.5); ALKALINE PHOSPHATASE 1801 IU/L (46-116); TOTAL PROTEIN 5.7 G/DL (6.4-8.2)
--- NOTE | 2024-12-26 16:41 | PROGRESS NOTE ---
Daily Progress Note Providers to CC ~ Antibiotic Timeout Antibiotic Ordered?: Yes Subjective Patient is still complaining of significant abdominal pain, tolerating food okay Objective Vital Signs Date Time Temp Pulse Resp B/P (MAP) Pulse Ox O2 Delivery O2 Flow Rate FiO2 12/26/24 12:08 16 12/26/24 10:00 98.0 53 106/61 (76) 99 Room Air 12/25/24 19:20 0.0 Result Diagram: 12/25/24 0850 12/26/24 1025 In bed in nonacute distress HEENT normal oral mucosa no JVD icteric sclera Lungs with decreased bilateral entry no crackles no wheezing Heart normal rate and rhythm S1-S2 Abdomen is soft mild generalized tenderness bowel sounds are present Extremities no edema Awake and alert motor and sensory intact Icteric tegument Coagulation Studies Laboratory Tests Test 12/22/24 05:07 12/24/24 06:30 Activated Partial Thromboplast Time 32 SECONDS (22-32) Prothrombin Time 14.1 SECONDS (9.0-12.0) H INR International Normalized Ratio 1.5 INR Coagulation Comments Problem\Assessment\Plan Problems/Diagnosis: (1) Elevated liver enzymes Patient presented with jaundice; has a pseudocyst compressing biliary ducts; discussed with GI; patient needs transferred to [facility] 12/23 awaiting to hear from [facility] 12/26 bilirubin continues to improve Pain management with IV Dilaudid 12/25 switch [place] for Percocets History of chronic pancreatitis History of cirrhosis 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
[2024-12-26 18:00] VITALS: BP 100/52; PULSE 59; RESP 19; TEMP 98; O2SAT 100
[2024-12-26 20:00] VITALS: RESP 16; O2SAT 99
[2024-12-26 22:00] VITALS: BP 120/62; PULSE 72; RESP 14; TEMP 98; O2SAT 100
[2024-12-27 06:00] VITALS: BP 101/50; PULSE 62; RESP 14; TEMP 98.6; O2SAT 99
[2024-12-27 08:00] VITALS: RESP 17; O2SAT 98
[2024-12-27 10:00] VITALS: BP 120/62; PULSE 70; RESP 1; TEMP 98.5; O2SAT 100
[2024-12-27 18:00] VITALS: BP 110/68; PULSE 61; RESP 17; TEMP 99.1; O2SAT 100
[2024-12-27 20:00] VITALS: RESP 17; O2SAT 100
--- NOTE | 2024-12-27 20:23 | PROGRESS NOTE ---
Daily Progress Note Providers to CC ~ Antibiotic Timeout Antibiotic Ordered?: Yes Subjective The patient is frustrated on the progress of being transferred to [facility] and I did not have any new information forearm and I did inform him that this is to be expected with trying to transfer the patient to a tertiary center. The patient is stable Objective Vital Signs Date Time Temp Pulse Resp B/P (MAP) Pulse Ox O2 Delivery O2 Flow Rate FiO2 12/27/24 14:20 15 12/27/24 10:00 98.5 70 120/62 (81) 100 Room Air 12/25/24 19:20 0.0 Result Diagram: 12/25/24 0850 12/26/24 1025 Gen. No acute distress alert and oriented 4 Lungs clear to ascultation bilaterally, no wheezes rales or rhonchi appreciated Heart normal sinus rhythm no murmurs rubs or clicks noted Abdomen soft nontender bowel sounds are normoactive Lower extremities no clubbing cyanosis, nor edema appreciated bilaterally Coagulation Studies Laboratory Tests Test 12/22/24 05:07 12/24/24 06:30 Activated Partial Thromboplast Time 32 SECONDS (22-32) Prothrombin Time 14.1 SECONDS (9.0-12.0) H INR International Normalized Ratio 1.5 INR Coagulation Comments Problem\Assessment\Plan Problems/Diagnosis: (1) Elevated liver enzymes # pseudocyst compressing biliary ducts; discussed with GI; patient needs transferred to 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
[2024-12-27] MEDS: insulin glargine (Lantus) pen - multi-dose SQ SCH (21:44)
[2024-12-27 22:00] VITALS: BP 120/62; PULSE 72; RESP 14; TEMP 98; O2SAT 100
[2024-12-28] VITALS (10 sets, daily range): BP systolic 99–132; BP diastolic 55–81; PULSE 16–83; RESP 16–20; TEMP 97.8–98.8; O2SAT 95–100
[2024-12-28 04:45] LABS: BASOPHILS % (AUTO) 0.3 % (0-1); EOSINOPHILS # (AUTO) 0.3 X10'3 (0-0.9); EOSINOPHILS % (AUTO) 6.6 % (0-6); LYMPHOCYTES # (AUTO) 0.9 X10'3 (1.1-4.8); LYMPHOCYTES % (AUTO) 20.5 % (21-51); MEAN CORPUSCULAR HEMOGLOBIN 30.7 PG (27.0-31.0); MEAN CORPUSCULAR HGB CONC 34.1 g/dL (33.0-36.5); MEAN CORPUSCULAR VOLUME 90.2 FL (78-98); MEAN PLATELET VOLUME 7.8 FL (7.4-10.4); MONOCYTES # (AUTO) 0.5 X10'3 (0-0.9); MONOCYTES % (AUTO) 10.1 % (2-12); NEUTROPHILS # (AUTO) 2.8 X10'3 (1.8-7.7); NEUTROPHILS % (AUTO) 62.5 % (42-75); PLATELET COUNT 131 X10'3 (140-440); RED BLOOD COUNT 2.27 X10'6 (4.70-6.10); RED CELL DISTRIBUTION WIDTH 21.2 % (11.5-14.5); WHITE BLOOD COUNT 4.5 X10'3 (4.5-11.0)
[2024-12-28 04:53] LABS: HEMATOCRIT 20.5 % (42.0-52.0)
[2024-12-28 05:18] LABS: ALANINE AMINOTRANSFERASE 107 U/L (12-78); ALBUMIN 2.6 G/DL (3.4-5.0); ANION GAP 8 (8-16); ASPARTATE AMINO TRANSFERASE 161 U/L (10-37); BILIRUBIN,TOTAL 4.7 MG/DL (0.1-1.0); BLOOD UREA NITROGEN 8 MG/DL (7-18); BUN/CREATININE RATIO 8.6 (10.0-20.0); CALCIUM 8.5 MG/DL (8.5-10.1); CHLORIDE 95 MMOL/L (99-107); CREATININE 0.93 MG/DL (0.60-1.10); GLUCOSE 152 MG/DL (70-104); POTASSIUM 4.3 MMOL/L (3.5-5.1); SODIUM 130 MMOL/L (135-145); TOTAL CARBON DIOXIDE 27.2 MMOL/L (24-32); eCRCL 67 ML/MIN; eGFR 82 ML/MIN
[2024-12-28 05:21] LABS: ALBUMIN/GLOBULIN RATIO 0.7 (1.1-1.5); ALKALINE PHOSPHATASE 1836 IU/L (46-116); TOTAL PROTEIN 6.2 G/DL (6.4-8.2)
[2024-12-28 10:18] LABS: MEAN CORPUSCULAR HEMOGLOBIN 30.6 PG (27.0-31.0); MEAN CORPUSCULAR HGB CONC 33.8 g/dL (33.0-36.5); MEAN CORPUSCULAR VOLUME 90.4 FL (78-98); MEAN PLATELET VOLUME 7.6 FL (7.4-10.4); PLATELET COUNT 132 X10'3 (140-440); RED BLOOD COUNT 2.26 X10'6 (4.70-6.10); RED CELL DISTRIBUTION WIDTH 21.2 % (11.5-14.5); WHITE BLOOD COUNT 5.2 X10'3 (4.5-11.0)
[2024-12-28 10:21] LABS: HEMATOCRIT 20.4 % (42.0-52.0); HEMOGLOBIN 6.9 g/dl (14.0-17.9)
[2024-12-28] MEDS: phytonadione inj. 10 MG in normal saline 100ml IV soln 100 ML IV ONE (15:48)
[2024-12-28 16:11] LABS: INR 1.3 INR; PROTHROMBIN TIME 13.1 SECONDS (9.0-12.0)
--- NOTE | 2024-12-28 18:17 | CONSULTATION ---
DATE OF CONSULTATION: 12/28/2024 DICTATING PHYSICIAN: Magdi Castillo MD REASON FOR CONSULTATION: The patient is evaluated at Dr. Benjamín Alicea's request for anemia and elevated liver test. HISTORY OF PRESENT ILLNESS: The patient was admitted through the emergency room on 12/19/2024 for jaundice. Workup in the hospital is notable for a CT scan showing findings consistent with chronic pancreatitis and a fluid collection inferior to the pancreas compressing the extrahepatic bile duct. When I spoke with the patient, he denied abdominal pain. His was at the bedside, she feels that the jaundice developed within the past 1-2 weeks. 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 MEDICATIONS: Insulin, Percocet as needed, lidocaine patch, pantoprazole, metronidazole, Dilaudid as needed, tamsulosin, ceftriaxone. PHYSICAL EXAMINATION: GENERAL: The patient is resting comfortably in bed and appears to be in no acute distress. He is drowsy. His is also at the bedside to assist with answering questions. VITAL SIGNS: Pulse is normal. Respirations normal. Blood pressure normal. Oxygen 99% saturated on room air. ABDOMEN: Nondistended, soft, nontender. HEART: Pulse, regular rate and rhythm. LUNGS: Have good excursion on deep inspiration. He is speaking in full sentences. LABORATORY DATA: White count 5.2, hemoglobin 6.9, MCV 90.4, platelets 132. INR is 1.5. Sodium 130, potassium 4.3, BUN 8, creatinine 0.93. Total bilirubin 4.7, AST 161, ALT 107, alkaline phosphatase 1836, albumin 2.6. IMAGING DATA: CT scan of the chest, abdomen, and pelvis performed on 12/19/2024 shows numerous calcifications within the pancreas with dilation of the pancreatic duct. There is a 43 x 22 mm in diameter loculated fluid collection posterior to the pancreatic head and traversing the body. The splenic vein appears to be compressed as does the common bile duct. The intrahepatic ducts are dilated. Spleen is enlarged at 13.5 cm. IMPRESSION: * Obstructive jaundice due to chronic pancreatitis and associated pseudocyst. * Anemia, which could be related to GI bleeding or chronic disease. PLAN: ERCP. The risks, benefits, alternatives, and limitations of the procedure were reviewed with the patient and his . They agreed to proceed. Thank you for the referral. Magdi Castillo MD TID: [id number] RECEIPT: [id number] FLAKO/CHARLES
--- NOTE | 2024-12-28 21:52 | PROGRESS NOTE ---
Daily Progress Note Providers to CC ~ Antibiotic Timeout Antibiotic Ordered?: Yes Subjective Patient dropped his hemoglobin was 6.[address] Reid about obtaining a possible EGD after reviewing the case Dr. Hung is taking the patient for an ERCP tomorrow Objective Vital Signs Date Time Temp Pulse Resp B/P (MAP) Pulse Ox O2 Delivery O2 Flow Rate FiO2 12/28/24 18:15 97.8 71 18 125/62 12/28/24 15:06 99 Room Air 12/28/24 08:00 0.0 Result Diagram: 12/28/24 1006 12/28/24 0415 Gen. No acute distress alert and oriented 4, jaundiced Lungs clear to ascultation bilaterally, no wheezes rales or rhonchi appreciated Heart normal sinus rhythm no murmurs rubs or clicks noted Abdomen soft nontender bowel sounds are normoactive Lower extremities no clubbing cyanosis, nor edema appreciated bilaterally Coagulation Studies Laboratory Tests Test 12/22/24 05:07 12/28/24 15:42 Activated Partial Thromboplast Time 32 SECONDS (22-32) Prothrombin Time 13.1 SECONDS (9.0-12.0) H INR International Normalized Ratio 1.3 INR Coagulation Comments Problem\Assessment\Plan Problems/Diagnosis: (1) Elevated liver enzymes # pseudocyst compressing biliary ducts; discussed with GI; patient needs transferred to [facility] 12/23 awaiting to hear from [facility] 12/26 bilirubin continues to improve Pain management with IV Dilaudid 12/25 switch [place] for Percocets 12/28 Dr. Castillo roll repairer consulted on the patient and is taking the patient for an ERCP tomorrow #chronic pancreatitis no signs of acute pancreatitis #History of cirrhosis #Diabetes likely secondary to pancreatic insufficiency on Lantus 12/27 the patient was hypoglycemic decrease Lantus to 10 units # normocytic Anemia Monitor daily CBC 12/28 hemoglobin dropped to 6.9- transfused 1 unit of packed red blood cells #Hyponatremia Monitor daily CMP Disposition: Likely discharge home on 12/30 and an outpatient follow up at [facility]. Date of Service: December 28, 2024 Billing Provider: STEVEN RAMSEY DO Common Visit Codes: [id number] INP/OBS CARE(HIGH) STEVEN RAMSEY DO December 28, 2024 21:52
[2024-12-29] VITALS (21 sets, daily range): BP systolic 101–130; BP diastolic 47–87; PULSE 60–108; RESP 14–20; TEMP 97.6–98.4; O2SAT 96–100
[2024-12-29 06:20] LABS: BASOPHILS % (AUTO) 0.4 % (0-1); EOSINOPHILS # (AUTO) 0.3 X10'3 (0-0.9); EOSINOPHILS % (AUTO) 4.1 % (0-6); HEMATOCRIT 24.5 % (42.0-52.0); HEMOGLOBIN 8.5 g/dl (14.0-17.9); LYMPHOCYTES # (AUTO) 0.7 X10'3 (1.1-4.8); LYMPHOCYTES % (AUTO) 11.9 % (21-51); MEAN CORPUSCULAR HEMOGLOBIN 30.9 PG (27.0-31.0); MEAN CORPUSCULAR HGB CONC 34.9 g/dL (33.0-36.5); MEAN CORPUSCULAR VOLUME 88.5 FL (78-98); MEAN PLATELET VOLUME 7.9 FL (7.4-10.4); MONOCYTES # (AUTO) 0.6 X10'3 (0-0.9); MONOCYTES % (AUTO) 9.9 % (2-12); NEUTROPHILS # (AUTO) 4.5 X10'3 (1.8-7.7); NEUTROPHILS % (AUTO) 73.7 % (42-75); PLATELET COUNT 120 X10'3 (140-440); RED BLOOD COUNT 2.76 X10'6 (4.70-6.10); RED CELL DISTRIBUTION WIDTH 21.1 % (11.5-14.5); WHITE BLOOD COUNT 6.2 X10'3 (4.5-11.0)
[2024-12-29 06:41] LABS: ALANINE AMINOTRANSFERASE 98 U/L (12-78); ALBUMIN 2.6 G/DL (3.4-5.0); ANION GAP 3 (8-16); ASPARTATE AMINO TRANSFERASE 136 U/L (10-37); BLOOD UREA NITROGEN 9 MG/DL (7-18); BUN/CREATININE RATIO 9.9 (10.0-20.0); CALCIUM 8.4 MG/DL (8.5-10.1); CHLORIDE 98 MMOL/L (99-107); CREATININE 0.91 MG/DL (0.60-1.10); GLUCOSE 60 MG/DL (70-104); POTASSIUM 3.9 MMOL/L (3.5-5.1); SODIUM 132 MMOL/L (135-145); eCRCL 69 ML/MIN; eGFR 84 ML/MIN
[2024-12-29 06:46] LABS: ALBUMIN/GLOBULIN RATIO 0.7 (1.1-1.5); TOTAL PROTEIN 6.2 G/DL (6.4-8.2)
[2024-12-29 07:11] LABS: ALKALINE PHOSPHATASE 1902 IU/L (46-116)
[2024-12-29 08:02] LABS: PLATELET ESTIMATE DECREASED
[2024-12-29 08:03] LABS: ANISOCYTOSIS 3+; TARGET CELLS FEW
[2024-12-29] MEDS: dextrose 50%-water 50ml dispensing syringe IV PRN (08:42)
[2024-12-29] MEDS ORDERED: glucagon, human recombinant 1mg kit ONE (12:43)
[2024-12-29] MEDS ORDERED: iohexol 300mg/ml 100ml inj. ONE (12:43)
[2024-12-29] MEDS ORDERED: midazolam 1 mg/ML 2ml injection ONE (13:23)
[2024-12-29] MEDS ORDERED: propofol inj 20 ML IV ONE (13:23)
[2024-12-29] MEDS ORDERED: rocuronium 10mg/ml inj IV ONE (13:23)
[2024-12-29] MEDS ORDERED: fentaNYL/PF 50MCG/1 ML 2ML syringe ONE (13:23)
[2024-12-29] MEDS ORDERED: sugammadex 200mg/2ml injection IV ONE (14:01)
--- NOTE | 2024-12-29 15:19 | OPERATIVE REPORT ---
DATE OF SURGERY: 12/29/2024 DICTATING PHYSICIAN: Magdi Castillo MD NAME OF THE PROCEDURE: ERCP SUB PROCEDURES: * Biliary sphincterotomy. * Common bile duct stricture brushing. * Biliary stent insertion (10-Sinhala, 9 cm in length). HISTORY: The patient is a 64-year-old man with chronic pancreatitis and a new finding of a fluid collection posterior to the pancreas compressing the splenic vein as well as the common bile duct. He has very cholestatic liver tests with alkaline phosphatase of approximately 1800 and total bilirubin of 5. There is intrahepatic biliary ductal dilation on imaging. PREOPERATIVE DIAGNOSIS: Obstructive jaundice. POSTOPERATIVE DIAGNOSIS: A 7 cm in length stricture involving the common bile duct and a portion of the common hepatic duct. CONSENT: Informed consent was obtained. The patient and his understood the risks, benefits, and alternatives to the procedure as well as limitations of the procedure, which include but are not limited to perforation, infection, bleeding, cardiopulmonary compromise from anesthesia and pancreatitis. TECHNIQUE: The patient was brought to the operating room and general anesthesia was administered. The patient remained in a supine position. A therapeutic duodenoscope was inserted into the esophagus. The esophageal mucosa appeared normal. I did not appreciate any varices. Examination of the stomach including retroflexed view was normal as was the pylorus, duodenal bulb, second portion of the duodenum, and major papilla. Deep cannulation of the bile duct was easily achieved with the aid of a guidewire. A cholangiogram was obtained showing a roughly 7 cm in length stricture involving the common bile duct and a portion of the common hepatic duct. The non-strictured portion of the common hepatic duct was dilated to 12 mm. The intrahepatic ducts were dilated. A small sphincterotomy was performed without immediate complication. Brushings were then obtained from the stricture. A 10-Sinhala, 9 cm in length biliary stent was placed in the usual fashion without immediate complication. There was excellent drainage. The scope was withdrawn. The patient tolerated the procedure well. IMPRESSION: Bile duct stricture involving the common bile duct and a portion of the common hepatic duct, likely due to extrinsic compression from the fluid collection in the region of the pancreas, likely a pseudocyst. PLAN: * Clear liquid diet. * If the patient is doing well tomorrow, we can advance his diet and he can be discharged. He will need a followup CT scan in about 1 month. Hopefully, the fluid collection will resolve or be shrinking by that point and will be able to remove the stent. * Await brushing results. Thank you for the referral. Magdi Castillo MD TID: [id number] RECEIPT: [id number] SHANEKA
--- NOTE | 2024-12-29 22:03 | PROGRESS NOTE ---
Daily Progress Note Providers to CC ~ Antibiotic Timeout Antibiotic Ordered?: Yes Subjective The patient is status post ERCP with discovered 7 cm stricture in the common bile duct and a sphincterotomy and a stent was placed by Dr. Hung who recommends repeat CT scan in one month. I evaluated the patient post ERCP with the patient's at bedside the patient is doing well and if tolerating advancement in diet tomorrow will likely be discharged. Objective Vital Signs Date Time Temp Pulse Resp B/P (MAP) Pulse Ox O2 Delivery O2 Flow Rate FiO2 12/29/24 21:12 18 12/29/24 18:25 97.9 71 115/63 (80) 98 Room Air 12/28/24 08:00 0.0 Result Diagram: 12/29/2452412/29/24524 Gen. No acute distress alert and oriented 4, jaundiced Lungs clear to ascultation bilaterally, no wheezes rales or rhonchi appreciated Heart normal sinus rhythm no murmurs rubs or clicks noted Abdomen soft nontender bowel sounds are normoactive Lower extremities no clubbing cyanosis, nor edema appreciated bilaterally Coagulation Studies Laboratory Tests Test 12/22/24 05:07 12/28/24 15:42 Activated Partial Thromboplast Time 32 SECONDS (22-32) Prothrombin Time 13.1 SECONDS (9.0-12.0) H INR International Normalized Ratio 1.3 INR Coagulation Comments Problem\Assessment\Plan Problems/Diagnosis: (1) Elevated liver enzymes # pseudocyst compressing biliary ducts; discussed with GI; patient needs transferred to [facility] 12/23 awaiting to hear from [facility] 12/26 bilirubin continues to improve Pain management with IV Dilaudid 12/25 switch [place] for Percocets 12/28 Dr. Castillo executive account manager consulted on the patient and is taking the patient for an ERCP tomorrow 12/29 status post ERCP with the following finding: roughly 7 cm in length stricture involving the common bile duct and a portion of the common hepatic duct. A sphincterotomy and stent was placed Per Dr. Ramirez the care the patient can be discharged tomorrow if tolerating advancement in diet #chronic pancreatitis no signs of acute pancreatitis #History of cirrhosis #Diabetes likely secondary to pancreatic insufficiency on Lantus 12/27 the patient was hypoglycemic decrease Lantus to 10 units # normocytic Anemia Monitor daily CBC 12/28 hemoglobin dropped to 6.9- transfused 1 unit of packed red blood cells 12/29 status post transfusion hemoglobin increased to 8.5 monitor daily CBC #Hyponatremia Monitor daily CMP Disposition: Likely discharge home on 12/30 and an outpatient follow up at [facility]. Date of Service: December 29, 2024 Billing Provider: STEVEN RAMSEY DO Common Visit Codes: [id number] INP/OBS CARE(HIGH) STEVEN RAMSEY DO December 29, 2024 22:03
[2024-12-30 05:53] LABS: BASOPHILS % (AUTO) 0.5 % (0-1); EOSINOPHILS # (AUTO) 0.2 X10'3 (0-0.9); EOSINOPHILS % (AUTO) 3.9 % (0-6); HEMATOCRIT 23.2 % (42.0-52.0); LYMPHOCYTES # (AUTO) 0.4 X10'3 (1.1-4.8); LYMPHOCYTES % (AUTO) 7.5 % (21-51); MEAN CORPUSCULAR HEMOGLOBIN 31.2 PG (27.0-31.0); MEAN CORPUSCULAR HGB CONC 34.5 g/dL (33.0-36.5); MEAN CORPUSCULAR VOLUME 90.4 FL (78-98); MONOCYTES # (AUTO) 0.4 X10'3 (0-0.9); MONOCYTES % (AUTO) 6.9 % (2-12); NEUTROPHILS # (AUTO) 4.6 X10'3 (1.8-7.7); NEUTROPHILS % (AUTO) 81.2 % (42-75); PLATELET COUNT 119 X10'3 (140-440); RED BLOOD COUNT 2.57 X10'6 (4.70-6.10); RED CELL DISTRIBUTION WIDTH 22.3 % (11.5-14.5); WHITE BLOOD COUNT 5.6 X10'3 (4.5-11.0)
[2024-12-30 06:00] VITALS: BP 131/63; PULSE 82; RESP 20; TEMP 98.4; O2SAT 100
[2024-12-30 06:13] LABS: ALANINE AMINOTRANSFERASE 75 U/L (12-78); ALBUMIN 2.6 G/DL (3.4-5.0); ANION GAP 6 (8-16); ASPARTATE AMINO TRANSFERASE 80 U/L (10-37); BILIRUBIN,TOTAL 4.2 MG/DL (0.1-1.0); BLOOD UREA NITROGEN 10 MG/DL (7-18); BUN/CREATININE RATIO 11.4 (10.0-20.0); CALCIUM 8.1 MG/DL (8.5-10.1); CHLORIDE 96 MMOL/L (99-107); CREATININE 0.88 MG/DL (0.60-1.10); POTASSIUM 3.3 MMOL/L (3.5-5.1); SODIUM 130 MMOL/L (135-145); TOTAL CARBON DIOXIDE 28.3 MMOL/L (24-32); eCRCL 71 ML/MIN; eGFR 87 ML/MIN
[2024-12-30 06:30] LABS: GLUCOSE 45 MG/DL (70-104)
[2024-12-30] MEDS: dextrose 50%-water 50ml dispensing syringe IV PRN (06:34)
[2024-12-30 06:50] LABS: ALKALINE PHOSPHATASE 1640 IU/L (46-116)
[2024-12-30 06:54] LABS: ALBUMIN/GLOBULIN RATIO 0.7 (1.1-1.5); TOTAL PROTEIN 6.4 G/DL (6.4-8.2)
[2024-12-30] MEDS ORDERED: magnesium sulf-water 2g/50mL 50 ML IV PRN (09:10)
[2024-12-30] MEDS ORDERED: magnesium Cl slow-release 64mg tablet PO PRN (09:10)
[2024-12-30] MEDS ORDERED: magnesium sulf-water 4G/100mL 100 ML IV PRN (09:10)
[2024-12-30] MEDS ORDERED: potassium Cl 20 mEq SR tablet PO PRN (09:10)
[2024-12-30] MEDS: potassium Cl 20 mEq SR tablet PO PRN (09:38)
[2024-12-30 10:35] VITALS: RESP 16; O2SAT 97
[2024-12-30 11:00] VITALS: BP 133/46; PULSE 86; RESP 17; TEMP 98.1; O2SAT 98
--- NOTE | 2024-12-30 17:31 | PROGRESS NOTE ---
DATE: 12/30/2024 DICTATING PHYSICIAN: Magdi Castillo MD SUBJECTIVE: The patient denies abdominal pain. He does not have much of an appetite. PHYSICAL EXAMINATION: VITAL SIGNS: He is afebrile, pulse normal, respirations normal, blood pressure normal. ABDOMEN: Soft, nontender. LABORATORY DATA: Total bilirubin down to 4.2, alkaline phosphatase down to 1640. 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 PLAN: * Advanced diet as tolerated. * Repeat CT scan of the abdomen and pelvis with IV contrast in one month to see if the pseudocyst is decreasing in size. * ERCP with stent change or stent removal within 3 months. I will make arrangements for the followup CT and followup ERCP. Thank you for the referral. Magdi Castillo MD TID: [id number] RECEIPT: [id number] FLAKO/NELI
[2024-12-30 18:30] VITALS: BP 95/54; PULSE 74; RESP 17; TEMP 98.1; O2SAT 98
[2024-12-30 20:00] VITALS: RESP 17; O2SAT 98
--- NOTE | 2024-12-30 21:48 | PROGRESS NOTE ---
Daily Progress Note Providers to CC ~ Antibiotic Timeout Antibiotic Ordered?: Yes Subjective The patient in his wants to go home however the patient has not worked with physical therapy and may require rehab placement. The patient is liver function tests are downtrending the patient is diet is advanced. The patient is hypoglycemic this morning I have stopped Lantus Objective Vital Signs Date Time Temp Pulse Resp B/P (MAP) Pulse Ox O2 Delivery O2 Flow Rate FiO2 12/30/24 16:56 18 12/30/24 11:00 98.1 86 133/46 (75) 98 Room Air 12/28/24 08:00 0.0 Result Diagram: 12/30/2414 12/30/24513 Gen. No acute distress alert and oriented 4, jaundiced Lungs clear to ascultation bilaterally, no wheezes rales or rhonchi appreciated Heart normal sinus rhythm no murmurs rubs or clicks noted Abdomen soft nontender bowel sounds are normoactive Lower extremities no clubbing cyanosis, nor edema appreciated bilaterally Coagulation Studies Laboratory Tests Test 12/22/24 05:07 12/28/24 15:42 Activated Partial Thromboplast Time 32 SECONDS (22-32) Prothrombin Time 13.1 SECONDS (9.0-12.0) H INR International Normalized Ratio 1.3 INR Coagulation Comments Problem\Assessment\Plan Problems/Diagnosis: (1) Elevated liver enzymes # pseudocyst compressing biliary ducts; discussed with GI; patient needs transferred to [facility] 12/23 awaiting to hear from [facility] [place] 12/26 bilirubin continues to improve Pain management with IV Dilaudid 12/25 switch [place] for Percocets 12/28 Dr. Castillo archivist consulted on the patient and is taking the patient for an ERCP tomorrow 12/29 status post ERCP with the following finding: roughly 7 cm in length stricture involving the common bile duct and a portion of the common hepatic duct. A sphincterotomy and stent was placed Per Dr. Ramirez the care the patient can be discharged tomorrow if tolerating advancement in diet 12/30 Dr Castillo recommends a repeat CT scan one month and an repeat EEG ERCP with stent change her stent removal in three months Dr. Hung will arrange for both #chronic pancreatitis no signs of acute pancreatitis #History of cirrhosis #Diabetes likely secondary to pancreatic insufficiency on Lantus 12/27 the patient was hypoglycemic decrease Lantus to 10 units 12/30 the patient was hypoglycemic again Lantus is discontinued # normocytic Anemia Monitor daily CBC 12/28 hemoglobin dropped to 6.9- transfused 1 unit of packed red blood cells 12/29 status post transfusion hemoglobin increased to 8.5 monitor daily CBC 12/30 hemoglobin slightly dropped today 8.5 monitor daily CBC #Hyponatremia- stable continue to monitor Monitor daily CMP Disposition: Continue to work with PT- if not improved by tomorrow will likely need rehab. Date of Service: December 30, 2024 Billing Provider: STVEEN RAMSEY DO Common Visit Codes: [id number] INP/OBS CARE(HIGH) STEVEN RAMSEY DO December 30, 2024 21:48
[2024-12-30 23:00] VITALS: BP 114/63; PULSE 77; RESP 20; TEMP 99.3; O2SAT 100
[2024-12-31 05:19] LABS: BASOPHILS % (AUTO) 0.3 % (0-1); EOSINOPHILS # (AUTO) 0.1 X10'3 (0-0.9); EOSINOPHILS % (AUTO) 1.3 % (0-6); HEMATOCRIT 22.1 % (42.0-52.0); HEMOGLOBIN 7.7 g/dl (14.0-17.9); LYMPHOCYTES # (AUTO) 0.5 X10'3 (1.1-4.8); LYMPHOCYTES % (AUTO) 10.7 % (21-51); MEAN CORPUSCULAR HEMOGLOBIN 31.6 PG (27.0-31.0); MEAN CORPUSCULAR VOLUME 90.3 FL (78-98); MEAN PLATELET VOLUME 7.8 FL (7.4-10.4); MONOCYTES # (AUTO) 0.6 X10'3 (0-0.9); MONOCYTES % (AUTO) 12.5 % (2-12); NEUTROPHILS # (AUTO) 3.8 X10'3 (1.8-7.7); NEUTROPHILS % (AUTO) 75.2 % (42-75); PLATELET COUNT 103 X10'3 (140-440); RED BLOOD COUNT 2.45 X10'6 (4.70-6.10); RED CELL DISTRIBUTION WIDTH 21.5 % (11.5-14.5)
[2024-12-31 05:33] LABS: ALANINE AMINOTRANSFERASE 58 U/L (12-78); ALBUMIN 2.4 G/DL (3.4-5.0); ALBUMIN/GLOBULIN RATIO 0.7 (1.1-1.5); ANION GAP 8 (8-16); ASPARTATE AMINO TRANSFERASE 58 U/L (10-37); BILIRUBIN,TOTAL 3.2 MG/DL (0.1-1.0); BLOOD UREA NITROGEN 7 MG/DL (7-18); BUN/CREATININE RATIO 7.8 (10.0-20.0); CALCIUM 7.9 MG/DL (8.5-10.1); CHLORIDE 92 MMOL/L (99-107); GLUCOSE 162 MG/DL (70-104); POTASSIUM 4.3 MMOL/L (3.5-5.1); SODIUM 126 MMOL/L (135-145); TOTAL CARBON DIOXIDE 26.5 MMOL/L (24-32); eCRCL 70 ML/MIN; eGFR 85 ML/MIN
[2024-12-31 06:02] LABS: ALKALINE PHOSPHATASE 1358 IU/L (46-116)
[2024-12-31] MEDS ORDERED: LACT-373 PO (12:16)
[2024-12-31] MEDS ORDERED: OXYC1TAB17 PO (12:16)
[2024-12-31 13:35] VITALS: BP 98/54; PULSE 63; RESP 16; TEMP 98.5
[2024-12-31 13:50] VITALS: BP 105/64; PULSE 66; RESP 16; TEMP 97.6
[2024-12-31 14:50] VITALS: BP 110/75; PULSE 75; RESP 16; TEMP 97.6
[2024-12-31 15:47] VITALS: BP 121/70; PULSE 75; RESP 16; TEMP 97.6
[2024-12-31 15:58] VITALS: BP 112/57; PULSE 66; RESP 16; TEMP 98.4
--- NOTE | 2024-12-31 20:52 | DISCHARGE SUMMARY ---
Discharge Summary Providers to CC ~ Discharge Summary Admission Diagnosis: Complicated pancreatic pseudocyst/hyperbilirubinemia Hospital Course DATE OF ADMISSION: 12/20/2024 DATE OF DISCHARGE: 12/31/2024 Discharge Diagnosis\\Comment: Pancreatic pseudocyst causing bile duct obstruction, cirrhosis of the liver, insulin-dependent diabetes mellitus, normocytic iron-deficiency anemia, hyponatremia, atrial fibrillation Operations\\Procedures: ERCP with sphincterotomy and bile duct stent placement Consultants: Dr. Magdi Castillo web ui software engineer Complications: None Condition on DC: Stable for transfer New Medications: Lactulose (Lactulose) 10 Gram/15 Ml Solution 20 GM PO BID, #1000 ML Oxycodone Hcl/Acetaminophen (Oxycodone-Acetaminophen 10-325) 10 Mg-325 Mg Tablet 1 TAB PO Q6H PRN for severe pain (7-10), #20 TAB Continued Medications: Amiodarone Hcl (Cordarone) 200 Mg Tablet 1 TAB PO DAILY Cyanocobalamin (Vitamin B-12) 1,000 Mcg Tablet 1 TAB PO DAILY Empagliflozin (Jardiance) 10 Mg Tablet 1 TAB PO DAILY Ferrous Sulfate* (Ferrous Sulfate*) 325 Mg Tablet 1 TAB PO DAILY, TAB Gabapentin (Gabapentin ER) 300 Mg Tab.er.24h 300 MG PO BID Glimepiride* (Amaryl*) 4 Mg Tablet 1 TAB PO BID Insulin Glargine,Hum.rec.anlog (Basaglar Kwikpen U-100) 100 Unit/Ml (3 Ml) Insuln.pen SQ Insulin Lispro (Insulin Lispro Kwikpen U-100) 100 Unit/Ml Insuln.pen SQ [krill oil] () Unknown Strength Unknown Dose Krill/Om-3/Dha/Epa/Phospho/Ast (Krill Oil 1,000 mg Softgel) 1,000-170MG Capsule 2 MG PO DAILY Lipase/Protease/Amylase (Zenpep Dr 25,000 Unit Capsule) 25-79-105K Capsule. Metronidazole* (Flagyl*) 500 Mg Tablet 1 TAB PO Q8H Multivitamin (Multi Vitamin Daily) 1 Each Tablet 1 TAB PO DAILY Multivitamin (Multi Vitamin Daily) 1 Each Tablet 1 TAB PO DAILY for 30 Days, TAB 0 Refills Tamsulosin Hcl* (Flomax*) 0.4 Mg Cap.sr.24h 1 TAB PO Q48H Ubidecarenone (Coq-10) 100 Mg Capsule 100 MG PO DAILY Ubidecarenone (Coq-10) 100 Mg Capsule 200 MG PO DAILY, CAP Discontinued Medications: Apixaban (Eliquis) 5 Mg Tablet 1 TAB PO BID Diclofenac Sodium (Diclofenac Sodium) 75 Mg Tablet.dr 1 TAB PO BID PRN for pain Hydrocodone Bit/Acetaminophen (Hydrocodon-Acetaminophn 10-325 tablet) 10mg- 325mg Tablet 1 TAB PO Q8H PRN for pain Lisinopril (Lisinopril) 10 Mg Tablet 1 TAB PO DAILY Meloxicam (Meloxicam) 15 Mg Tablet 1 TAB PO DAILY Metoprolol Tartrate* (Metoprolol Tartrate*) 50 Mg Tablet 1 TAB PO Q12H, TAB Midodrine Hcl (Midodrine Hcl) 10 Mg Tablet 1 TAB PO TID Discharge Summary: The patient was admitted by resident physician IVY Mccauley under the supervision of ADY Dahl MD with the following HPI:"This 64-year-old male was transferred from [facility] due to abnormal liver function tests. He is a poor historian. He has a history of alcohol use disorder, liver cirrhosis, CKD, diabetes mellitus type 2, history of AFib/alcoholic cardiomyopathy-s/p AICD placement, peptic ulcer disease, erosive esophagitis with significant GI bleed requiring pressors in the past. He recently had right 2nd and 3rd toe amputation done. He complains of abdominal pain mainly in the right lower quadrant for the last 2-3 days. Denies any nausea, vomiting, constipation or diarrhea. States that his noticed him turning completely yellow yesterday. Denies any fever or chills, chest pain, shortness of breath, dizziness or syncope or any other complaints. States that his last drink was about six months back." The patient had a CT scan chest abdomen and pelvis with the following findings: 1. A loculated fluid collection posterior to the pancreas may represent a pseudocyst. It likely compresses the distal common bile duct. 2. Ascending through transverse colonic wall thickening concerning for colitis. No perforation or abscess. 3. Urinary bladder wall thickening may be due to incomplete distention or cystitis. Please correlate clinically. 4. Chronic pancreatitis. 5. Splenomegaly. 6. Postcholecystectomy. 7. Enlarged prostate. The patient had an abdominal ultrasound that demonstrated the following findings: 1. Intrahepatic biliary ductal dilatation with a prominent common bile duct measuring 7 mm. No obstructive stone recommend correlation with HIDA scan to evaluate for ductal obstruction. 2. Gallbladder wall and pericholecystic edema. No gallstones 3. Heterogeneous echotexture of the liver suggesting steatosis 4. Complex collection anterior to the pancreas 4.5 x 2.2 cm, question pseudocyst, bowel loop 5. Mild ascites The patient has been accepted for transfer for ultrasound-guided endoscopy [facility] however bed was not available and however the patient became more anemic his hemoglobin was 9.7 on admission and then dropped to 7.0 on the repeated a hemogram in the afternoon which hemoglobin dropped to 6.9 and the patient was transfused 1 unit of packed red blood cells which improved his hemoglobin to 8.5 however this did downtrend over the next couple of days and was on the morning of discharge on the 7.7 I did transfuse the patient had an additional unit of packed red blood cells since the hemoglobin was downtrending. And the patient is to check a CBC in one-week Patient does have hyponatremia his serum sodium is 126 on the day discharge was recommended to recheck a basic metabolic panel in one-week Due to the drop in hemoglobin I contacted Dr. Sood web ui software engineer for possible EGD Dr. Duffy was willing to perform a ERCP with the following findings:roughly 7 cm in length stricture involving the common bile duct and a portion of the common hepatic duct. A sphincterotomy and stent was placed and recommended a repeat CT scan of the abdomen pelvis with IV contrast in one month to see of the pseudocyst decreased in size as well as an ERCP with stent change within three months and Dr. Sood will arrange for both to occur. The patient is liver function tests did improve from peaked at 14.2 on day discharge the bilirubin dropped to 3.2 with a according drop in AST and ALT. The patient has insulin-dependent diabetes mellitus and was treated with a hyper and hypoglycemic protocol during hospitalization discharged in his home medications. The patient has chronic atrial fibrillation remains on amiodarone due to the fact the patient has a elevated INR of 1.4 due to his end-stage liver disease the patient is to continue amiodarone however apixaban was stopped for now the patient in his will discuss with his auto parts handler for further updates on medication changes. Gen. No acute distress alert and oriented 4, jaundiced Lungs clear to ascultation bilaterally, no wheezes rales or rhonchi appreciated Heart normal sinus rhythm no murmurs rubs or clicks noted Abdomen soft nontender bowel sounds are normoactive Lower extremities no clubbing cyanosis, nor edema appreciated bilaterally The patient felt ready to be discharged and was medically cleared to be discharged on 12/31/2024 with home health The patient was seen and evaluated on day of discharge. Time spent on discharge 40 minutes *Problems/Diagnosis: (1) Elevated liver enzymes Status: Acute Total Time Spent on D/C: > 30 Minutes Date of Service: December 31, 2024 Billing Provider: STEVEN RAMSEY DO Common Visit Codes: [id number] DISCH DAY >30min STEVEN RAMSEY DO December 31, 2024 20:51
--- NOTE | 2025-01-02 12:20 | PATHOLOGY REPORT ---
[facility] [address] [place] [address] NON-LINE O SCRIBE OPERATOR CYTOLOGY REPORT CaseNumber: [id number] Surgeon:Magdi Castillo M.D. CLINICAL INFORMATION CLINICAL INFORMATION: Stricture DIAGNOSIS DIAGNOSIS: COMMON BILE DUCT; BRUSHING - ADEQUATE FOR CYTOLOGIC EVALUATION (LIMITED CELLULARITY). - NEGATIVE FOR MALIGNANCY ON CURRENT SPECIMEN. - BILE DUCT MUCOSA WITH FOCAL REACTIVE EPITHELIAL CHANGES AND POLARIZABLE DEBRIS. MICROSCOPIC DESCRIPTION MICROSCOPIC DESCRIPTION: Microscopic examination is performed on one Papanicolaou stained double cyto spin slide. The preparation is adequate for cytologic evaluation; however, has limited cellularity. P resent is bile duct mucosa with focal reactive epithelial changes. Within the background is polarizab le debris. There is no evidence of malignancy on the current specimen. (st) GROSS DESCRIPTION GROSS DESCRIPTION: Received labeled with the patient's name, number, and "CBD stricture brushing" is a 10ml bottle of clear cytostat red. One double cytospin slide is prepared. There is insufficient mat erial for a cell block. (cs) Electronically signed by: Raul Cotter D.O. 01/02/2025 11:47:00 AM
== END 2024-12-31 16:55 | disposition home health service (06) | DRG 438 ==
LOC: ER 16:05 → ED HOLD 12-20 02:41 → SUR 3N 12-20 04:45
PROVIDERS: ADMIT Internal Medicine Critical Care Medicine; ATTEND Internal Medicine
PROC: BW251ZZ Computerized Tomography (CT Scan) of Chest, Abdomen and Pelvis using Low Osmolar Contrast (ICD-10-PCS; 2024-12-19)
PROC: 30233N1 Transfusion of Nonautologous Red Blood Cells into Peripheral Vein, Percutaneous Approach (ICD-10-PCS; 2024-12-28)
PROC: BF101ZZ Fluoroscopy of Bile Ducts using Low Osmolar Contrast (ICD-10-PCS; 2024-12-29)
PROC: 0F798DZ Dilation of Common Bile Duct with Intraluminal Device, Via Natural or Artificial Opening Endoscopic (ICD-10-PCS; principal; 2024-12-29 13:16)
DX: K86.3 Pseudocyst of pancreas (principal); K83.1 Obstruction of bile duct; E87.1 Hypo-osmolality and hyponatremia; I42.6 Alcoholic cardiomyopathy; K70.31 Alcoholic cirrhosis of liver with ascites; K86.0 Alcohol-induced chronic pancreatitis; E11.649 Type 2 diabetes mellitus with hypoglycemia without coma; I50.9 Heart failure, unspecified; K72.10 Chronic hepatic failure without coma; E11.22 Type 2 diabetes mellitus with diabetic chronic kidney disease; N40.0 Benign prostatic hyperplasia without lower urinary tract symptoms; R74.01 Elevation of levels of liver transaminase levels; K52.9 Noninfective gastroenteritis and colitis, unspecified; N18.9 Chronic kidney disease, unspecified; I48.0 Paroxysmal atrial fibrillation; R16.1 Splenomegaly, not elsewhere classified; D50.9 Iron deficiency anemia, unspecified; Z88.8 Allergy status to other drugs, medicaments and biological substances; Z90.49 Acquired absence of other specified parts of digestive tract; Z88.0 Allergy status to penicillin; Z80.51 Family history of malignant neoplasm of kidney; Z79.01 Long term (current) use of anticoagulants; Z79.84 Long term (current) use of oral hypoglycemic drugs; Z79.899 Other long term (current) drug therapy; Z82.49 Family history of ischemic heart disease and other diseases of the circulatory system; Z87.11 Personal history of peptic ulcer disease; Z87.19 Personal history of other diseases of the digestive system; Z95.810 Presence of automatic (implantable) cardiac defibrillator; Z89.431 Acquired absence of right foot
CPT/HCPCS: 36415; 36430; 36600; 43274; 71045; 71260; 74177; 76700; 80053; 80061; 81003; 82140; 82728; 82803; 82948; 83036; 83540; 83550; 83605; 83690; 83735; 84100; 85007; 85008; 85018; 85025; 85027; 85610; 85730; 86885; 86900; 86901; 86920; 87040; 87081; 96361; 96365; 96367; 97116; 97162; 97530; 97535; 99285; A4618; A6212; A6213; A6258; A6590; C1769; C2625; G0378; J0696; J1171; J1610; J1815; J1885; J2250; J2270; J2405; J2470; J2704; J3010; J3370; J3430; J3475; J3490; J7030; J7040; J7120; P9016; Q9967